=== PATIENT | female | born 1940 | race Caucasian/White ===

== ENCOUNTER → 2018-12-28 10:40 | Outpatient (CLI) | payer MEDICARE, OTHER | END | disposition home or self-care (01) | LOC: D.MRI 12-13 11:30 | PROVIDERS: ATTEND Orthopaedic Surgery | DX: M54.5 Low back pain (principal) ==

== ENCOUNTER → 2019-02-07 12:04 | Outpatient (CLI) | payer MEDICARE, OTHER ==
--- NOTE | ~2019-02-07 | HEMODYNAMI ---
PATIENT:PIERRE KRAFT MEDICAL RECORD: [id number] : 42 LOCATION:[facility] ADMISSION DATE: 02/07/19 Generatedon:02/07/201913:42 Patient name: PIERRE KRAFT Patient #: [id number] SSN: : 1940 Date of study: 02/07/2019 Page: Of Hemodynamic Procedure Report Patient Data Patient Demographics Procedure consent was obtained First Name: PIERRE Gender: Female Last Name: SWAPNIL : 1940 [facility] Initial: M Age: 78 year(s) Patient #: [id number] Race: Unknown Additional ID: [id number] Contact details Address: [address] [place] [address] State: [place] City: [place] Zip code: [address] Past Medical History Allergies Allergen Reaction Date Comments Reported Sulfa drugs 02/07/2019 Admission Admission Data Admission Date: 02/07/2019 Admission Time: 12:04 Procedure Procedure Types Cath Procedure Peripheral Cath Diagnostic Procedure Miscellaneous Epidural Steroid Injection Procedure Description Procedure Date Procedure Date: 02/07/2019 Procedure Start Time: 13:24 Procedure Staff Name Function Morris Jones MD Performing Physician Myke Rossi RT Monitor Procedure Data Cath Procedure Fluoroscopy Diagnostic fluoroscopy Total fluoroscopy Time: 1 time: 1 min min Diagnostic fluoroscopy Total fluoroscopy dose: 19 dose: 19 mGy mGy Hemodynamics Rest Pre Cath Intra NCS Post Cath Procedure Log Time Note 13:13:52 Myke Rossi RT (R) (CV) sent for patient. Start room use. 13:14:01 Time tracking: Regular hours (M-F 7:00 - 5:00) 13:14:17 Patient received from Outpatients to IR Alert and oriented. Tansferred to table in Prone position. 13:14:18 Correct patient and procedure confirmed by team. 13:14:20 Signed procedure consent form obtained from patient. 13:14:21 ECG and BP/O2 sat monitors applied to patient. 13:14:23 Full Disclosure recording started 13:14:23 - 13:14:25 Pre-procedure instructions explained to patient. 13:14:26 Pre-op teaching completed and patient verbalized understanding. 13:14:31 Is patient on blood thinner?No 13:15:01 Patient allergic to Sulfa drugs 13:23:49 Lumbar area was prepped with betadine and draped in sterile fashion 13:23:52 --------ALL STOP TIME OUT------ 13:23:53 Final Timeout: patient, procedure, and site verified with staff and physician. All members of the team are in agreement. 13:23:57 Lumbar site verified by team. 13:24:16 Sedation plan: Local Anesthetic Medication:Lidocaine 13:24:26 Procedure started. 13:24:32 Local anesthetic to Lumbar area with Lidocaine 1% by Morris Jones MD.INITIAL ACCESS ONLY 13:24:34 KIT EPIDURAL CATHETERIZATION opened to sterile field. 13:41:27 Procedure ended.(Physican Out) 13:41:48 Fluoroscopy time 01.00 minutes. 13:41:55 Fluoroscopy dose: 19 mGy 13:41:55 Flurop Dose total: 19 13:42:12 bandaide applied site stable pt sent home Device Usage Item Name Manufacture Quantity Catalog Hospital Part Current [facility] l Lot# / Number Charge Number Stock Stock Serial# Code KIT EPIDURAL Teleflex 1 [id number] CATHETERIZATION Signature Audit [place] Stage Time Signature Unsigned Intra-Procedure 02/07/2019 Myke 1:42:42 PM Enid RT (R) (CV) Signatures Monitor : Myke Signature : Enid RT Date : Time : [facility] [address] [place] [address]
== END | disposition home or self-care (01) ==
LOC: D.RAD 01-17 14:00 → D.SP 01-17 14:00
PROVIDERS: ATTEND Orthopaedic Surgery
DX: G89.29 Other chronic pain (principal); M54.9 Dorsalgia, unspecified; Z01.812 Encounter for preprocedural laboratory examination

== ENCOUNTER 2020-02-17 19:48 | Inpatient (IN) | payer MEDICARE, OTHER ==
[~2020-02-17] VITALS: Ht 165.1 cm; Wt 65.0 kg
--- NOTE | ~2020-02-17 | HEMODYNAMI ---
PATIENT:PIERRE KRAFT MEDICAL RECORD: [id number] : 42 [facility] ADMISSION DATE: 02/17/20 Generatedon:02/18/20209:40 Patient name: PIERRE KRAFT Patient #: [id number] SSN: [id number] : 1940 Date of study: 02/18/2020 Page: Of Hemodynamic Procedure Report Patient Data Patient Demographics Procedure consent was obtained First Name: PIERRE Gender: Female Last Name: SWAPNIL : 1940 [facility] Initial: M Age: 79 year(s) Patient #: [id number] Race: SSN: [id number] Additional ID: [id number] Contact details Address: [address] [place] [address] State: [place] City: [place] Zip code: [address] Past Medical History Allergies Allergen Reaction Date Comments Reported Sulfa drugs 02/07/2019 Other allergy 02/18/2020 SULFA Admission Admission Data Admission Date: 02/17/2020 Admission Time: 21:00 Arrival Date: 02/18/2020 Arrival Time: 0:00 Admit Source: Other Insurance Payor: Medicare Room #: D.2115 [facility] #: [id number] Lab Results Lab Result Date: 02/18/2020 Lab Result Time: 0:00 Biochemistry Name Units Result Min Max BUN mg/dl 12 --(-*--)-- 7 18 CK-MB ng/ml 9.1 --(----)-* 0 3.6 Creatinine mg/dl 0.7 --(*---)-- 0.6 1.3 eGFR ml/min 85.05922 -*(----)-- 90 120 NONAFRICAN Troponin l ng/ml 2.031 --(----)-* 0 0.06 CBC Name Units Result Min Max Hematocrit % 28 *-(----)-- 42 54 Hemoglobin g/dl 9.2 *-(----)-- 13.5 17.5 Procedure Procedure Types Cath Procedure Diagnostic Procedure [facility] w/Coronaries Sedation Charges Moderate Sedation up to 15 minutes Procedure Description Procedure Date Procedure Date: 02/18/2020 Procedure Start Time: 9:09 Procedure End Time: 9:35 Procedure Staff Name Function Loco Dee MD Performing Physician Leo Vela RN Nurse Linn Rodriguez RT Scrub Dianna Araya RT Monitor Procedure Data Cath Procedure Fluoroscopy Diagnostic fluoroscopy Total fluoroscopy Time: 4.6 time: 4.6 min min Diagnostic fluoroscopy Total fluoroscopy dose: 384 dose: 384 mGy mGy Contrast Material Contrast Material Type Amount (ml) Isovue 300 60 Entry Location Entry Primary Successful Side Size Upsize Upsize Entry Closure Mcmahon ccessful Closure Location (Fr) 1 (Fr) 2 (Fr) Remarks Device Remarks Radial Right 6 Fr Mechanical artery Short Compression Estimated blood loss: 5 ml Diagnostic catheters Device Type Used For End Catheter Placement DIAGNOSTIC [place] 110cm 5 Multi-vessel Fr catheter ([id number]) Angiography DIAGNOSTIC MPA-2 5Fr Right Coronary catheter ([id number]) Angiography Procedure Complications No complications Procedure Medications Medication Administration Route Dosage Oxygen etCO2 Nasal cannula 2 l/min Lidocaine 2% added to field 20 Heparin Flush Bag added to field 2 bags (1000units/500ml NS) 0.9% NaCl I.V. bolus 500 ml Versed I.V. 1 mg Versed I.V. 1 mg Radial Cocktail I.A. 1 syringe (Verapamil 2mg/Nitro 400mcg/Heparin 1500units) Hemodynamics Rest HGB: 9.2 (g/dl) Heart Rate: 49 (bpm) Pressure Samples Time Site Value (mmHg) Purpose Heart Use Rate(bpm) 9:20 LV 144/-3,0 Snapshot 77 9:20 LV 161/69,70 EDP 53 Snapshots Pre Cath Intra NCS Post Cath Vital Signs Time Heart Resp SPO2 etCO2 NIBP (mmHg) Rhythm Pain Sedation Rate (ipm) (%) (mmHg) Status Level (bpm) 8:58:45 53 25 100 33 174/80(145) SB 0 (11) 10(A) , No pain 9:03:07 48 17 99 32.3 168/78(138) SB 0 (11) 10(A) , No pain 9:07:33 47 25 100 23.3 169/61(144) SB 0 (11) 10(A) , No pain 9:11:57 50 20 98 24 154/67(116) SB 0 (11) 10(A) , No pain 9:16:13 62 13 95 27.8 137/75(117) SB 0 (11) 10(A) , No pain 9:20:17 50 15 98 21 150/99(114) SB 0 (11) 10(A) , No pain 9:26:40 52 14 33.8 Time NSR 0 (11) 10(A) Exceeded , No pain 9:30:17 53 21 98 29.3 168/68(95) NSR 0 (11) 10(A) , No pain 9:34:39 55 21 98 20.3 169/70(95) NSR 0 (11) 10(A) , No pain Medications Time Medication Route Dose Verified Delivered Reason Notes Effectiveness by by 8:56:56 Oxygen etCO2 2 l/min Norred Buffie used for Nasal Luiz Vela RN procedure cannula 8:57:08 Lidocaine 2% added 20ml Norred Norred for local to vial Luiz Dee MD anesthetic field 8:57:14 Heparin Flush added 2 bags Norred Norred used for Bag to Luiz Dee MD procedure (1000units/500ml field NS) 8:57:26 0.9% NaCl I.V. 500 ml Norred Buffie Per bolus Luiz Vela RN physician 9:05:15 Versed I.V. 1 mg Norred Buffie for sedation Luiz Vela RN 9:15:49 Radial Cocktail I.A. 1 Norred Norred for (Verapamil syringe Luiz Dee MD vasodilation 2mg/Nitro 400mcg/Heparin 1500units) 9:19:16 Versed I.V. 1 mg Norred Buffie for sedation Luiz Vela RN Procedure Log Time Note 8:19:17 Informed consent obtained and on chart 8:19:44 Diagnostic Cath Status : Urgent 8:20:08 Arrival Date: 02/18/2020 12:00:00 AM 8:20:09 Admit Source: Other 8:20:13 Insurance Payor : Medicare 8:25:56 ACC Patient presents with Stable Angina CCS Anginal Class 3--Marked limitation of physical activity, angina occurs with ordinary activity.. 8:26:40 Procedure Status Urgent Heart Cath (IP). 8:26:45 Time tracking: Call back (After hours or weekends) 8:26:50 Plan of Care:Hemodynamics will remain stable., Cardiac rhythm will remain stable., Comfort level will be maintained., Respiratory function will remain adequate., Patient/ family verbilizes understanding of procedure., Procedure tolerated without complication., Recovers from procedure without complications.. 8::33 Lab Result : BUN 12 mg/dl : Lab Result : Creatinine 0.7 mg/dl :: Lab Result : Troponin l 2.031 ng/ml :: Lab Result : CK-MB 9.1 ng/ml :: Lab Result : eGFR NONAFRICAN 85.07022 ml/min :: Lab Result : Hemoglobin 9.2 g/dl :: Lab Result : Hematocrit 28 % 8:29:52 Lab results completed and on chart. 8:29:55 Stress Test: no; N/A ? 8:29:59 Risk of Mortality: 2.2 8:30:02 Risk of blood transfusion: 18.5 8:30:07 Risk of YAAKOV: 4.1 8:30:09 Alarms reviewed by R. N. 8:30:10 Sharps counted by scrub and verified by R.N. 8:32:52 Patient allergic to Other allergySULFA 8:40:32 Leo Vela RN sent for patient. Start room use. 8:44:00 Patient received from Med II to CCL 1 Alert and oriented. Tansferred to table in Supine position. 8:44:01 Warm blankets applied, and fco hugger turned on for patient comfort. 8:44:01 Correct patient and procedure confirmed by team. 8:44:02 ECG and BP/O2 sat monitors applied to patient. 8:44:12 Pre-procedure instructions explained to patient. 8:44:12 Pre-op teaching completed and patient verbalized understanding. 8:44:14 Family unavailable. 8:44:16 Patient NPO since Midnight. 8:56:44 Vital chart was started 8:56:56 Oxygen 2 l/min etCO2 Nasal cannula was administered by Leo Vela RN; used for procedure; Verbal order read back and verified. 8:57:08 Lidocaine 2% 20ml vial added to field was administered by Loco Dee MD; for local anesthetic; Verbal order read back and verified. 8:57:14 Heparin Flush Bag (1000units/500ml NS) 2 bags added to field was administered by Loco Dee MD; used for procedure; Verbal order read back and verified. 8:57:26 0.9% NaCl 500 ml I.V. bolus was administered by Leo Vela RN; Per physician; Verbal order read back and verified. 9:02:00 Baseline sample Acquired. 9:02:06 Rhythm: sinus bradycardia 9:02:07 Full Disclosure recording started 9:02:11 H&P Date Dictated: 02/18/2020 New H&P dictated by physician.. 9:02:15 Is the patient allergic to Iodine/contrast media? No. 9:02:16 Was the patient premedicated? Yes 9:02:19 Is patient on blood thinner?Yes 9:02:22 ACC The patient was administered the following blood thiners within the last 24 hours: ACCPlavix 9:02:24 Patient diabetic? No. 9:02:27 Previous problem with sedation/anesthesia? No ? 9:02:30 Snore? No 9:02:31 Sleep apnea? No 9:02:32 Deviated septum? No 9:02:34 Opens mouth fully? Yes 9:02:36 Sticks out tongue? Yes 9:02:53 Airway obstruction? No ? 9:03:15 Dentures? Yes IN TIGHT 9:03:20 Pre procedure: right dorsailis pedis pulse 1+ Palpable, but thready & weak; easily obliterated 9:03:24 Pre procedure: left dorsailis pedis pulse 1+ Palpable, but thready & weak; easily obliterated 9:03:28 Patient pain scale 0/10 ?. 9:03:34 IV patent on arrival in left antecubital with 0.9% NaCl at [facility]. 9:03:38 Physician arrived 9:03:38 --------ALL STOP TIME OUT------ 9:03:39 Final Timeout: patient, procedure, and site verified with staff and physician. All members of the team are in agreement. 9:03:41 Right Radial & Right Groin site verified by team. 9:03:45 Fire Safety Assessment: A--An alcohol-based skin anteseptic being used preoperatively., C--Open oxygen or nitrous oxide is being used., D--An ESU, laser, or fiber-optic light is being used. 9:03:48 Physical assessment completed. ASA score P 2 - A patient with mild systemic disease as per Loco Dee MD. 9:04:05 2) 60-89 Mildly reduced kidney function, and other findings (as for stage 1) point to kidney disease. 9:04:22 Maximum allowable contrast dose (3.7 X eGFR X 0.75)238 ml. 9:04:26 Sedation plan: IV Moderate Sedation Medication:Versed, Fentanyl 9:05:15 Versed 1 mg I.V. was administered by Leo Vela RN; for sedation; Verbal order read back and verified. 9:09:04 Procedure started. 9:09:08 Local anesthetic to right radial artery with Lidocaine 2% by Loco Dee MD.INITIAL ACCESS ONLY 9:10:41 MICROPUNCTURE 4FR Cook (S71202) opened to sterile field. 9:10:57 Access obtained with 4Fr micropunture. 9:11:06 A 6 Fr Short sheath was inserted into the Right Radial artery 9:11:33 Use device set Radial Dx or PCI 9:11:34 ACIST Syringe (97518) opened to sterile field. 9:11:34 Medline Cath Pack ([id number]) opened to sterile field. 9:11:35 Bag Decanter (2002) opened to sterile field. 9:11:35 ACIST Hand Control (01717) opened to sterile field. 9:11:35 ACIST Manifold (67039) opened to sterile field. 9:11:36 Tegaderm 4 x 4 (1626W) opened to sterile field. 9:11:37 MBrace Wrist Support ([id number]) opened to sterile field. 9:11:39 EMERALD Guide Wire (815-386) opened to sterile field. 9:11:39 SHEATH 6FR RAIN (6244565) opened to sterile field. 9:14:03 FIELDER XT 190cm guidewire ([id number]) opened to sterile field. 9:14:57 FIELDER wire advanced. 9:15:49 Radial Cocktail (Verapamil 2mg/Nitro 400mcg/Heparin 1500units) 1 syringe I.A. was administered by Loco Dee MD; for vasodilation; Verbal order read back and verified. 9:18:55 Wire removed. 9:19:03 A DIAGNOSTIC [place] 110cm 5 Fr catheter (823375) was advanced over the wire and used for Multi-vessel Angiography. 9:19:16 Versed 1 mg I.V. was administered by Leo Vela RN; for sedation; Verbal order read back and verified. 9:20:10 LV hemodynamics recorded. 9:20:11 LV gram done using MCFADDEN 9:20:13 Injector settings: Ml/sec: 12, Volume: 8, 9:21:06 EF : 55 % 9:22:23 LCA angiography performed. 9::27 Injector settings: Ml/sec: 3, Volume: 6, 9:24:37 Catheter removed. 9:26:22 A DIAGNOSTIC MPA-2 5Fr catheter ([id number]) was advanced over the wire and used for Right Coronary Angiography. 9:26:42 RCA angiography performed. 9:26:44 Injector settings: Ml/sec: 3, Volume: 6, 9:27:24 Catheter removed. 9:28:57 Sheath removed intact; hemostasis achieved with Mechanical Compression to the Right Radial artery. 9:28:58 Procedure ended.(Physican Out) 9:29:18 ZEPHYR REGULAR TR BAND (609885) opened to sterile field. 9:29:58 Fluoroscopy time 04.60 minutes. 9:30:03 Fluoroscopy dose: 384 mGy 9:30:03 Flurop Dose total: 384 9:30:09 Dose Area Product 21790 mGy/cm. 9:30:17 Contrast amount:Isovue 300 60ml. 9:30:20 Maximum allowable dose exceeded? No. 9:30:22 Sharps counted by scrub and verified by R.N. 9:30:24 [place] band inflated with 10cc of air. 9:30:29 Post right radial artery:stable 9:30:31 Post Procedure Pulses reassessed and unchanged 9:30:33 Post procedure rhythm: unchanged. 9:31:10 Estimated blood loss: 5 ml 9:31:11 Post procedure instruction explained to patient.Patient verbalizes understanding. 9:31:12 Patient needs reinforcement of post procedure teaching. 9:35:02 Procedure type changed to Cath procedure, Diagnostic procedure, LHC, LHC w/Coronaries, Sedation Charges, Moderate Sedation up to 15 minutes 9:35:03 Procedure and supply charges have been captured, reviewed, submitted and are correct. 9:35:07 Procedure Complication : No complications 9:35:09 Vital chart was stopped 9:35:10 [facility] Findings: MVD- CABG consult 9:35:12 Operative report dictated upon procedure completion. 9:35:13 See physician's report for complete and final results. 9:35:16 Report given to [facility]. 9:35:18 Patient transfered to [facility] with Stretcher. 9:35:21 Procedure ended. 9:35:21 Full Disclosure recording stopped 9:35:26 End room use (Document Last) 9:39:12 End room use (Document Last) 9:39:37 End room use (Document Last) Device Usage Item Name Manufacture Quantity Catalog Hospital Part Current Mini mal Lot# / Number Charge Number Stock Stock Serial# Code MICROPUNCTURE Cook Medical 1 [id number] [id number] [id number] 5 4FR Cook ([id number]) ACIST Syringe Acist 1 80605 853995 493767 830947 20 (58667) Medical Systems Inc Medline Cath Medline 1 [id number] 084634 35551 380254 5 Pack ([id number]) Bag Decanter Microtek 1 2002S 210066 59738 714171 5 (2002S) Medical Inc. ACIST Hand Acist 1 71657 166327 820976 755126 5 Control Medical (72485) Systems Inc ACIST Acist 1 79310 710106 086726 263837 5 Manifold Medical (68250) Systems Inc Tegaderm 4 x 3M 1 1626W 067646 388625 818388 5 4 (1626W) MBrace Wrist Advanced 1 140-0250-00 065777 78203 392749 5 Support Vascular ([id number]) Dynamics EMERALD Guide Cardinal 1 502-455 590793 432248 728054 5 Wire Health (502-455) SHEATH 6FR Cardinal 1 0590825 632469 2032909 081179 5 [facility] (4155606) FIELDER XT Asahi Intecc 1 [id number] 842298 55634 149245 5 190cm guidewire ([id number]) DIAGNOSTIC Terumo 1 40-9189 759655 916267 973789 5 [place] 110cm 5 Fr catheter (433006) DIAGNOSTIC Cardinal 1 [id number] 267458 157920 041800 5 MPA-2 5Fr Health catheter (083497Z) ZEPHYR Cardinal 1 023591 177569 4412123 989969 5 REGULAR TR Health BAND (364836) Signature Audit [place] Stage Time Signature Unsigned Intra-Procedure 02/18/2020 Dianna Araya 9:39:12 AM RT(R) Intra-Procedure 02/18/2020 Leo Vela RN 9:39:37 AM Intra-Procedure 02/18/2020 Loco Dee MD 9:40:21 AM [facility] [address] [place] [place] [address]
--- NOTE | ~2020-02-17 | EC ---
PATIENT:PIERRE KRAFT DATE OF SERVICE: 02/17/20 SEX: F MEDICAL RECORD: [id number] DATE OF : 42 LOCATION:D.M2 D.211 AGE OF PATIENT: 79 ADMISSION DATE: 02/17/20 REFERRING PHYSICIAN: INTERPRETING PHYSICIAN: SONAM RAJPUT MD ECHOCARDIOGRAM REPORT ECHO CHARGES 4 ECHO COMPLETE Date: 02/18/20 CLINICAL DIAGNOSIS: NSTE VT ECHOCARDIOGRAPHIC MEASUREMENTS (adult normal given) AC root (d.<3.7cm) 3.6 cm LV Septum d (<1.2 cm> 1.4 cm Valve Excursion 1.7 cm LV Septum (systole) 1.6 cm Left Atria (s.<4.0cm> 3.9 cm LVPW d(<1.2cm) 1.3 cm RV (d.<2.3cm) 2.9 cm LVPW (sytole) 1.7 cm LV diastole(<5.6CM) 4.9 cm MV E-F(>70mm/sec) cm LV systole 3.4 cm LVOT Diameter 1.9 cm MV exc.(>10mm) 1.2 cm Est.ejection fraction (50-75%) % DOPPLER: LVIT cm/sec A 79.0 cm/sec E 74.0 cm/sec LA cm/sec RVSP 22 mmHg LVOT 127 cm/sec AOP1/2T m/s Asc. Ao 132 cm/sec RVOT 99 cm/sec RA cm/sec PA 138 cm/sec AV Gradient Peak 6.95 mmHg AV Mean 2.97 mmHg AV Area 2.4 cm MV Gradient Peak 2.93 mmHg MV Mean 0.93 mmHg MV Area cm COMMENTS: [employer] Cord: Brit RAZA Roll Clamp Operator: Karmen Rajput TAPE# PACS Pericardial Effusion N DATE OF SERVICE: PROCEDURE: Transthoracic echocardiogram. FINDINGS: 1. Left ventricle shows moderate left ventricular hypertrophy with ejection fraction of 55%. 2. Left atrium is normal size; shape, and function. 3. The aortic valve is normal. 4. The mitral valve appears to be structurally normal, but there is evidence of ECHOCARDIOGRAM REPORT [id number] PIERRE KRAFT moderate to moderately severe mitral regurgitation. 5. Tricuspid valve has mild tricuspid regurgitation with an estimated pressure of 22 mmHg. 6. Right ventricle has mild enlargement. 7. Right atrium is normal. IMPRESSION: The patient has left ventricular hypertrophy and evidence of moderate to moderately severe mitral regurgitation. TRANSINT:[id number] Voice Confirmation ID: [id number] DOCUMENT ID: [id number] SONAM RAJPUT MD CC: [id number] DICTATION DATE: 02/18/20 1143 HOISTER: 02/18/20 1449 ADM IN [facility] [address] [place] [address]
[2020-02-17 20:05] LABS: BASOPHILS 0.2 % (0-2); EOSINOPHILS 8.4 % (0-7); HEMATOCRIT 29.6 % (36.0-48.0); HEMOGLOBIN 9.7 g/dL (12-16); IMMATURE GRANULOCYTES 0.2 % (0-5); MCH 35.1 pg (26.0-34.0); MCHC 32.8 g/dL (31.0-37.0); MCV 107.2 fL (80.0-100.0); MEAN PLATELET VOLUME 9.2 fL (7.4-10.4); MONOCYTES 10.5 % (2-11); NEUTROPHILS 42.7 % (40-80); PLATELET COUNT 265 10x3/uL (130-400); RBC 2.76 10x6/uL (4.00-5.40); RDW 14.1 % (11.5-14.5); WBC 4.7 10x3/uL (4.8-10.8)
[2020-02-17 20:12] LABS: CALC OSMOLALITY 275 mosm/kg (275-300); CALCIUM 9.3 mg/dL (8.5-10.1); CARBON DIOXIDE 28.1 mmol/L (21.0-32.0); CHLORIDE - SERUM 103 mmol/L (98-107); CREATININE - SERUM 0.8 mg/dL (0.6-1.3); GLUCOSE 121 mg/dL (74-106); POTASSIUM - SERUM 3.4 mmol/L (3.5-5.1); SODIUM 137 mmol/L (136-145); UREA NITROGEN 15 mg/dL (7-18); eGFR NON AFRICAN AMERICAN 73 mL/min (90-120)
[2020-02-17 20:13] LABS: APTT 25.4 SECONDS (22.8-39.4); PROTIME 13.2 SECONDS (11.6-15.0)
[2020-02-17 20:22] VITALS: BP 159/68
[2020-02-17 20:36] LABS: ALBUMIN 3.5 g/dL (3.4-5.0); ALKALINE PHOSPHATASE 95 U/L (30-120); ALT (SGPT) 18 U/L (10-68); CREATINE KINASE 54 UL (21-215); MAGNESIUM - SERUM 1.7 mg/dL (1.8-2.4); PROTEIN - SERUM 6.6 g/dL (6.4-8.2)
[2020-02-17 20:38] LABS: TROPONIN-I 0.908 ng/mL (0.000-0.060)
[2020-02-17] MEDS ORDERED: OMEPRAZOLE20 M1 PO (22:55)
[2020-02-18 01:35] VITALS: BP 165/57; BMI 24.9
[2020-02-18 02:56] LABS: HEMOGLOBIN 9.2 g/dL (12-16); MCH 34.6 pg (26.0-34.0); MCHC 32.9 g/dL (31.0-37.0); MCV 105.3 fL (80.0-100.0); MEAN PLATELET VOLUME 9.5 fL (7.4-10.4); PLATELET COUNT 251 10x3/uL (130-400); RBC 2.66 10x6/uL (4.00-5.40); WBC 5.2 10x3/uL (4.8-10.8)
[2020-02-18 03:11] LABS: LYMPHOCYTES 35 % (15-50); MONOCYTES 11 % (2-11); NEUTROPHILS 54 % (40-80); PLATELET ESTIMATE NORMAL
[2020-02-18 03:35] LABS: CALC OSMOLALITY 277 mosm/kg (275-300); CALCIUM 8.9 mg/dL (8.5-10.1); CARBON DIOXIDE 30.8 mmol/L (21.0-32.0); CHLORIDE - SERUM 106 mmol/L (98-107); CKMB 9.1 U/L (0.0-3.6); CREATINE KINASE 93 UL (21-215); CREATININE - SERUM 0.7 mg/dL (0.6-1.3); GLUCOSE 102 mg/dL (74-106); SODIUM 139 mmol/L (136-145); UREA NITROGEN 12 mg/dL (7-18); eGFR NON AFRICAN AMERICAN 86 mL/min (90-120)
[2020-02-18 03:38] LABS: TROPONIN-I 2.031 ng/mL (0.000-0.060)
[2020-02-18 04:46] VITALS: BP 137/55
[2020-02-18 08:47] LABS: CREATINE KINASE 76 UL (21-215)
[2020-02-18 08:48] VITALS: BMI 24.9
[2020-02-18 08:48] LABS: TROPONIN-I 1.691 ng/mL (0.000-0.060)
[2020-02-18 09:16] LABS: CALC OSMOLALITY 277 mosm/kg (275-300); CALCIUM 8.9 mg/dL (8.5-10.1); CHLORIDE - SERUM 106 mmol/L (98-107); CREATININE - SERUM 0.6 mg/dL (0.6-1.3); GLUCOSE 96 mg/dL (74-106); POTASSIUM - SERUM 3.8 mmol/L (3.5-5.1); SODIUM 140 mmol/L (136-145); UREA NITROGEN 10 mg/dL (7-18); eGFR NON AFRICAN AMERICAN > 90 mL/min (90-120)
[2020-02-18 09:37] LABS: BASOPHILS 0.2 % (0-2); EOSINOPHILS 6.3 % (0-7); HEMATOCRIT 26.4 % (36.0-48.0); HEMOGLOBIN 8.7 g/dL (12-16); LYMPHOCYTES 31.3 % (15-50); MCH 34.8 pg (26.0-34.0); MCV 105.6 fL (80.0-100.0); MEAN PLATELET VOLUME 9.3 fL (7.4-10.4); MONOCYTES 9.6 % (2-11); NEUTROPHILS 52.6 % (40-80); PLATELET COUNT 234 10x3/uL (130-400); RDW 13.9 % (11.5-14.5); WBC 4.5 10x3/uL (4.8-10.8)
[2020-02-18 09:44] VITALS: Ht 165.1 cm; Wt 65.0 kg
--- NOTE | 2020-02-18 10:15 | NUR ---
RECEIVED PT FROM CLINICAL COORDINATOR. RIGHT RADIAL SITE IS C/D/I WITH NO S/S OF HEMATOMA PRESENT. ZEPHER BAND IN PLACE. NO S/S OF DISTRESS NOTED. WILL CTM.
[2020-02-18 10:58] VITALS: BP 164/73
[2020-02-18 13:47] LABS: % SATURATION 36 % (15-55); IRON 76 ug/dl (35-150); TOTAL IRON BIND CAPACITY 207 ug/dl (260-445); UNSAT IRON BIND CAPACITY 131 ug/dl (150-375)
[2020-02-18 15:27] VITALS: BP 137/57
--- NOTE | 2020-02-18 20:00 | NUR ---
INITIAL ROUNDS COMPLETED. PT RESTING IN BED. FAMILY X 1 AT BEDSIDE. SR PER TELEMETRY. NONLABORED RESPIRATIONS ON ROOM AIR. SALINE LOCK TO LEFT A/C.
[2020-02-18 20:47] VITALS: BP 153/64
--- NOTE | 2020-02-18 22:00 | NUR ---
LOVENOX ADMINISTERED. PT C/O REFLUX/GERD. REVIEWED MEDS AND ADMINISTERED HER ORDERED PEPCID IV. MONITOR AND CPOC. [facility] DONE THIS AM. DRESSING IN PLACE. C/D/I. SMALL AMOUNT BRUISING NOTED. CPOC.
[2020-02-19 04:30] VITALS: BP 120/54
[2020-02-19 09:17] VITALS: BP 123/53
--- NOTE | 2020-02-19 10:30 | NUR ---
PT C/O LT AC IV HURTING AND WANTED TO GET IT CHANGED TO DIFFERENT SITE. NEW 20G IV STARTED TO LT FA X1 STICK. PT DENIES ANY NEEDS AT THIS TIME. CALL LIGHT IN REACH, NAD NOTED, WILL CONTINUE TO MONITOR.
--- NOTE | 2020-02-19 12:06 | HP ---
PATIENT: PIERRE KRAFT MEDICAL RECORD: [id number] ACCOUNT: [id number] LOCATION:[address] : 42 ADMISSION DATE: 02/18/20 PCP: DELON AVELAR MD HISTORY AND PHYSICAL EXAMINATION DATE OF ADMISSION: 02/17/2020 CHIEF COMPLAINT: Chest pain. HISTORY OF PRESENT ILLNESS: This is a 79-year-old female started having chest pain during the day on 02/17/2020, it went to the left side of her neck and shoulder and into her left arm. She did have some shortness of breath, some nausea. She has no history of heart disease. She came to the ER where her workup in the ER showed hemoglobin of 8.7, hematocrit 26.4. Basic metabolic panel was okay. Troponin was elevated at 0.908. Chest x-ray showed nothing acute. EKG showed nonspecific changes. She was admitted with non-ST elevated WI and elevated troponin with chest pain. PAST MEDICAL AND SURGICAL HISTORY: She has a history of reflux and arthritis. She had heart catheterization back in 2012 and it was essentially normal. She has a history of cognitive decline. We started the process of trying to get her in to see somebody for official testing and then the COVID-19 pandemic started and she was unable to get in and be seen. Past surgical history; bilateral tubal ligation, left knee arthroscopy. ALLERGIES: CELEBREX, PENICILLIN, SULFA. MEDICATIONS: Omeprazole 20 mg once a day. SOCIAL HISTORY: , retired. HABITS: Never smoked. No alcohol or drugs. FAMILY HISTORY: Both parents are . Mother had dementia. Sister with dementia. REVIEW OF SYSTEMS: GENERAL: No major weight changes. HEENT: No particular sinus or allergy problems. RESPIRATORY: No history of emphysema or asthma. CARDIAC: No known coronary artery disease. Had an angiogram in 2013 that was normal. GASTROINTESTINAL: Has some reflux. GENITOURINARY: No significant problems there. MUSCULOSKELETAL: Some arthritic aches and pains. NEUROLOGIC: She has a cognitive decline. No seizures. No migraines. PSYCHIATRIC: No depression or melancholia. PHYSICAL EXAMINATION: VITAL SIGNS: Temperature is 98.2, pulse 49, respirations 19, blood pressure 137/55, O2 sat 96%. GENERAL: She is awake and alert. She does not appear to be in acute distress. SKIN: Warm and dry. HEENT: Grossly within normal limits. NECK: Supple. No JVD or bruit. HISTORY AND PHYSICAL [id number] PIERRE KRAFT HEART: Bradycardia without murmur. LUNGS: Clear. ABDOMEN: Soft. EXTREMITIES: No edema. NEUROLOGIC: Cranial nerves are intact. LABORATORY AND DIAGNOSTIC DATA: EKG showed normal sinus rhythm, nonspecific ST changes. Chest x-ray, nothing acute. CBC with a white count of 4500, hemoglobin 8.7, hematocrit 26.4, platelets number 234,000. Sodium 140, potassium 3.8, chloride 106, CO2 28, BUN 10, creatinine 0.6, glucose 96, calcium 8.9. MCV was 105. Troponin initially was 0.908 going up to 2.031 and the third was a little down at 1.69, magnesium 1.7. ASSESSMENT: 1. Chest pain with non-ST elevation myocardial infarction. 2. Sinus bradycardia. 3. Macrocytic anemia. PLAN: Cardiology has been consulted and has seen the patient. 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 Consult CV surgery. We will do anemia workup for macrocytic anemia. Other tests or procedures as warranted. TRANSINT:[id number] Voice Confirmation ID: [id number] DOCUMENT ID: [id number] DELON AVELAR MD at 1206 CC: [id number] DICTATION DATE: 02/18/20 1309 TRIMMER TAILER: 02/18/20 1419 ADM IN [facility] [id number] [place] [address]
[2020-02-19 12:08] VITALS: BP 123/49
--- NOTE | 2020-02-19 17:30 | NUR ---
PT RESTING COMFORTABLY IN BED, DENIES ANY NEEDS AT THIS TIME. FAMILY AT BEDSIDE, CALL LIGHT IN REACH,NAD NOTED, WILL CONTINUE TO MONITOR.
--- NOTE | 2020-02-19 20:00 | NUR ---
INITIAL ROUNDS AND ASSESSMENT COMPLETED. PT RESTING IN BED. ALERT/ORIENTED. SR PER TELEMETRY. IVF SALINE LOCKED AT PT REQUEST SO SHE CAN SLEEP AND GET UP TO BATHROOM WITHOUT ISSUES. 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 SHE IS ALSO DEPRESSED WITH REMINISCING ABOUT HER CHILDREN THAT HAVE AND HER HAS 5 YEARS AGO. SPENT TIME TALKING TO PATIENT, ENCOURAGING HER TO TALK ABOUT HER FEELINGS AND PROVIDED EMOTIONAL SUPPORT.
[2020-02-19 20:30] VITALS: BP 124/59
[2020-02-20 04:36] VITALS: BP 130/60
[2020-02-20 08:16] VITALS: BP 120/66
--- NOTE | 2020-02-20 09:55 | NUR ---
AM MEDS GIVEN AT THIS TIME. PT A/O X4, RESP EVEN AND NONLABORED ON RA. LT FA IV SL. MONITOR SHOWING SR WITH ARATE OF 62. PT DENIES ANY NEEDS AT THIS TIME. CALL LIGHT IN REACH, NAD NOTED, WILL CONTINUE TO MONITOR.
[2020-02-20 12:48] VITALS: BP 116/40
[2020-02-20 17:01] VITALS: BP 114/50
--- NOTE | 2020-02-20 20:00 | NUR ---
INITIAL ROUNDS AND ASSESSMENT COMPLETED. PT RESTING IN BED WITH NO DISTRESS. ALERT/ORIENTED. STATES SHE DID GET TO TALK TO THE AIR AND HYDRONIC BALANCING TECHNICIAN ABOUT HER MVD/SURGERY NEEDS. PROVIDED WITH DAILY PAPER FOR STIMULATION. SR PER TELEMETRY. SALINE LOCK TO LFA. AMBULATORY TO BATHROOM. CPOC.
[2020-02-20 20:21] VITALS: BP 114/51
--- NOTE | 2020-02-20 23:44 | NUR ---
PT BORED AND UP AN DOWN IN HER ROOM. INQUISITIVE ABOUT HER PLAN OF CARE. WENT OVER HER NEW ORDERS FOR TODAY AND THE LAB RESULTS THAT WILL BE ADDRESSED BY THE MD. ADMINISTERED HER IV PEPCID AND IM LOVENOX TO ABDOMEN. CPOC.
[2020-02-21 00:33] VITALS: BP 141/60
[2020-02-21 05:48] VITALS: BP 115/51
[2020-02-21 07:15] LABS: BASOPHILS 0.2 % (0-2); HEMATOCRIT 29.2 % (36.0-48.0); HEMOGLOBIN 9.4 g/dL (12-16); IMMATURE GRANULOCYTES 0.2 % (0-5); LYMPHOCYTES 32.4 % (15-50); MCH 34.4 pg (26.0-34.0); MCHC 32.2 g/dL (31.0-37.0); MEAN PLATELET VOLUME 9.7 fL (7.4-10.4); MONOCYTES 9.6 % (2-11); NEUTROPHILS 47.6 % (40-80); PLATELET COUNT 273 10x3/uL (130-400); RBC 2.73 10x6/uL (4.00-5.40); RDW 14.3 % (11.5-14.5); WBC 4.4 10x3/uL (4.8-10.8)
[2020-02-21 07:35] LABS: CALC OSMOLALITY 277 mosm/kg (275-300); CALCIUM 9.3 mg/dL (8.5-10.1); CARBON DIOXIDE 30.1 mmol/L (21.0-32.0); CHLORIDE - SERUM 103 mmol/L (98-107); CREATININE - SERUM 0.6 mg/dL (0.6-1.3); GLUCOSE 98 mg/dL (74-106); POTASSIUM - SERUM 4.2 mmol/L (3.5-5.1); SODIUM 140 mmol/L (136-145); UREA NITROGEN 11 mg/dL (7-18); eGFR NON AFRICAN AMERICAN > 90 mL/min (90-120)
[2020-02-21 08:00] VITALS: BP 107/55
[2020-02-21 11:00] VITALS: BP 120/47
--- NOTE | 2020-02-21 12:09 | NUR ---
Nutrition Follow-up: Pt reports PO intake is "not too good" but then states she ate all of her breakfast this AM. Does not like the food provided. Denies N/V/C/D. Diet: Cardiac PO intake: 82% avg x 7 meals Wt: 147.7# (02/20); 149.9# (02/17) Last BM: 02/19 Labs reviewed Meds noted: Pepcid -Encourage PO intake and honor food preferences within diet restrictions. -Monitor wt. -RD following.
[2020-02-21 13:25] LABS: BASOPHILS 0.2 % (0-2); EOSINOPHILS 10.4 % (0-7); HEMATOCRIT 30.8 % (36.0-48.0); HEMOGLOBIN 9.9 g/dL (12-16); LYMPHOCYTES 34.9 % (15-50); MCH 34.7 pg (26.0-34.0); MCHC 32.1 g/dL (31.0-37.0); MCV 108.1 fL (80.0-100.0); MEAN PLATELET VOLUME 9.1 fL (7.4-10.4); MONOCYTES 9.7 % (2-11); NEUTROPHILS 44.8 % (40-80); PLATELET COUNT 260 10x3/uL (130-400); RBC 2.85 10x6/uL (4.00-5.40); RDW 14.2 % (11.5-14.5); WBC 4.1 10x3/uL (4.8-10.8)
[2020-02-21 13:33] LABS: APTT 34.1 SECONDS (22.8-39.4); INR 1.01 (0.85-1.17); PROTIME 13.2 SECONDS (11.6-15.0)
[2020-02-21 13:58] LABS: BILIRUBIN NEGATIVE (NEGATIVE); GLUCOSE NEGATIVE (NEGATIVE); KETONE NEGATIVE (NEGATIVE); NITRITE NEGATIVE (NEGATIVE); UROBILINOGEN NORMAL (NORMAL)
[2020-02-21 14:04] LABS: BACTERIA MANY /hpf (NEGATIVE); EPITHELIAL CELLS 0-5 /hpf (0-5); RED CELLS - URINE NONE SEEN /hpf (0-5)
[2020-02-21 14:05] LABS: ALBUMIN 3.5 g/dL (3.4-5.0); ANION GAP 9.1 mmol/L (8-16); BILIRUBIN - TOTAL 0.29 mg/dL (0.2-1.3); CALCIUM 9.3 mg/dL (8.5-10.1); PHOSPHOROUS 3.4 mg/dL (2.5-4.9); POTASSIUM - SERUM 4.1 mmol/L (3.5-5.1); PROTEIN - SERUM 6.6 g/dL (6.4-8.2); T4 THYROXIN - FREE 0.95 ng/dL (0.76-1.46); THYROID STIMULATING HORMONE 2.28 uIU/mL (0.36-3.74)
[2020-02-21 14:06] LABS: CREATININE - SERUM 0.8 mg/dL (0.6-1.3)
[2020-02-21 14:32] LABS: PLT FUNCT.(P2Y12) PLAVIX 276 PRU (194-418)
[2020-02-21 15:00] VITALS: BP 137/48
--- NOTE | 2020-02-21 19:22 | NUR ---
RECEIVED BEDSIDE REPORT. PATIENT IS ALERT AND ORIENTED, RESTING COMFORTABLY IN BED. RESPIRATIONS ARE EVEN AND UNLABORED. NO S/S OF DISTRESS. NO C/O PAIN. CALL LIGHT WITHIN REACH. WILL CPOC.
[2020-02-21 20:50] VITALS: BP 117/66
[2020-02-22 00:39] VITALS: BP 135/52
--- NOTE | 2020-02-22 01:00 | NUR ---
PATIENT RESTING COMFORTABLY IN BED, RESPIRATIONS ARE EVEN AND UNLABORED. NO S/S OF DISTRESS. NO C/O PAIN. CALL LIGHT WITHIN REACH. WILL CPOC.
--- NOTE | 2020-02-22 03:30 | NUR ---
PATIENT RESTING COMFORTABLY IN BED. RESPIRATIONS ARE EVEN AND UNLABORED. NO S/S OF DISTRESS. NO C/O PAIN. CALL LIGHT WITHIN REACH. WILL CPOC.
[2020-02-22 05:13] VITALS: BP 105/57
--- NOTE | 2020-02-22 07:43 | NUR ---
IN AND OUT CATH DONE FOR UA SPECIMEN. OP CLEAR YELLOW.
[2020-02-22 08:14] LABS: GLUCOSE NEGATIVE (NEGATIVE); KETONE NEGATIVE (NEGATIVE); NITRITE POSITIVE (NEGATIVE); UROBILINOGEN NORMAL (NORMAL)
[2020-02-22 08:15] LABS: BILIRUBIN NEGATIVE (NEGATIVE)
[2020-02-22 08:16] LABS: BACTERIA MANY /hpf (NEGATIVE); EPITHELIAL CELLS 0-5 /hpf (0-5); RED CELLS - URINE 0-5 /hpf (0-5)
[2020-02-22 08:59] VITALS: BP 119/47
[2020-02-22 13:14] LABS: SPE - A/G RATIO 1.2 (0.7-1.7); SPE - ALBUMIN 3.4 g/dL (2.9-4.4); SPE - ALPHA-1 GLOBULIN 0.3 g/dL (0.0-0.4); SPE - ALPHA-2 GLOBULIN 0.9 g/dL (0.4-1.0); SPE - GAMMA GLOBULIN 0.7 g/dL (0.4-1.8); SPE - M-SPIKE Not Observed g/dL (Not Observed); SPE - TOTAL PROTEIN 6.3 g/dL (6.0-8.5)
[2020-02-22 13:21] VITALS: BP 109/50
[2020-02-22 20:00] VITALS: BP 119/55
[2020-02-23] VITALS (50 sets, daily range): BP systolic 118–162; BP diastolic 48–67
[2020-02-23 10:43] LABS: INR 1.23 (0.85-1.17); PROTIME 15.4 SECONDS (11.6-15.0)
--- NOTE | 2020-02-23 12:02 | NUR ---
Nutrition Follow-up: CABG today. Wt: 143.3# (02/21); 149.9# (02/17) Labs reviewed Meds reviewed -Rec ADAT as medically feasible following surgery; if unable to advance diet within 24-48 hrs, rec consider nutrition support. -Monitor wt. -RD following.
--- NOTE | 2020-02-23 13:13 | NUR ---
1155 PT RECIEVED FROM OR SEDATED FROM SURGERY ETT 8.0 SECURED AND PLACED ON VENT BY RT, R IJ CVLDRESSING CDI, SEE IV FLOWSHEET, R RADIAL A LINE ZEROED, GOOD WAVEFORM, WRIST PROTECTOR IN PLACE, MIDSTERNAL DRESSING CDI SUBSTERNAL TPM WIRES ATTACHED TO TPM, TPM OFF, JANAY DRAIN COMPRESSED WITH BLOODY DRAINAGE, CT (2 Y'D TOGETHER) TO 20 CM SUCTION NO AIR LEAK WITH BLOODY DRAINAGE, RLE HARVEST SITES WITH COBAN GROIN TO ANKLE, LLE KELLY/SCDS IN PLACE, JAUREGUI DRAINING YELLOW URINE ABGS REVIEWED BY DR MURRY IN UNIT
--- NOTE | 2020-02-23 13:58 | NUR ---
[address] FINK NURSE COURTNI OF BLEEDING NOTED TO SUBSTERNAL DRESSING, CHEST TUBES DRAINING BLOODY DRAINAGE, DRESSING REMOVED AND R CT APPEARS TO BE CLOTTING NEAR INSERTION SITE. DRESSING CHANGED. [address] MURRY AND NOTIFIED, NEW ORDERS FOR PLATELETS AND HE STATED HE WOULD COME ASSESS PT
[2020-02-23 14:10] LABS: BETA-2 MICROGLOBULIN 2.1 mg/L (0.6-2.4)
--- NOTE | 2020-02-23 14:35 | NUR ---
DR MURRY AT BEDSIDE, CHANGED CHEST TUBES FROM 2 Y'D TOGETHER TO TWO SINGLE TUBES PLUS THE JANAY DRAIN, THE ORIGINAL CHEST TUBE CANISTER LABELED ANTERIOR IS TO THE LEFT CHEST TUBE AND THE RIGHT CHEST TUBE IS TO THE NEW CANISTER LABELED POSTERIOR.
--- NOTE | 2020-02-23 16:30 | NUR ---
ABGS VITALS, I&OS CALLED TO DR ANTON, STATED TO MONITOR UNTIL 1699 THEN POSSIBLE EXTUBATION
--- NOTE | 2020-02-23 16:43 | NUR ---
TPM CHANGED TO [address] ANTON
--- NOTE | 2020-02-23 16:55 | NUR ---
PT EXTUBATED AND RESTRAINTS REMOVED AT THIS TIME
--- NOTE | 2020-02-23 18:29 | NUR ---
DR ANTON UPDATED ON PT, NO NEW ORDERS
--- NOTE | 2020-02-23 19:15 | NUR ---
PT RECEIVED WITH EYES CLOSED AND CHEST RISING. EASILY AWOKEN TO VERBAL STIMULI. NO S/S OF DISTRESS. RIGHT IJ WITH PLASMALYTE 100ML/HR, AMIODARONE 0.5MG/MIN, INSULIN 6 UNITS/H, ZINACEF 12.8 ML/HR, NITRO 25 MCG/KG/MIN. RIGHT RADIAL ARTLINE WITH GOOD WAVEFORM, ZEROED. CVP ZEROED. ANTERIOR AND POSTERIOR CHEST TUBES, JANAY DRAIN WITH BLOODY DRAINAGE, DRESSING C/D/I. TEMPORARY PACEMAKER RATE AAI RATE 90 A OUTPUT 20, A SENSITIVITY 0.4. N/C 3LPM. DRESSING TO MIDSTERNAL INCISION C/D/I, RLE HARVEST SITE COBAN DRESSING ANKLE TO GROIN C/D/I. ICE CHIPS GIVEN TOLERATED WELL. WILL CONTINUE TO OBSERVE.
--- NOTE | 2020-02-23 22:10 | NUR ---
WITH EYES CLOSED AND CHEST RISING, EASILY AWOKEN TO ROOM ENTRY. SCHEDULED MEDICATIONS GIVEN, TOLERATED WELL. NO S/S OF DISTRESS. WILL CONTINUE TO OBSERVE.
--- NOTE | 2020-02-23 23:40 | NUR ---
PT WITH EYES OPEN, NO COMPLAINTS MADE KNOWN. WILL CONTINUE TO OBSERVE.
[2020-02-24] VITALS (49 sets, daily range): BP systolic 113–152; BP diastolic 50–69
--- NOTE | 2020-02-24 01:40 | NUR ---
PT DANGLED ON SIDE OF BED, TOLERATED WELL. NO EXCESSIVE DRAINAGE NOTED TO CHEST TUBES. PT BEGAN BELCHING WHILE SITTING UP. PT BACK IN BED, NO S/S OF DISTRESS. WILL CONTINUE TO OBSERVE.
[2020-02-24 06:27] LABS: HEMATOCRIT 30.8 % (36.0-48.0); HEMOGLOBIN 10.1 g/dL (12-16); MCH 32.3 pg (26.0-34.0); MCHC 32.8 g/dL (31.0-37.0); MCV 98.4 fL (80.0-100.0); MEAN PLATELET VOLUME 9.6 fL (7.4-10.4); RBC 3.13 10x6/uL (4.00-5.40); RDW 18.4 % (11.5-14.5); WBC 10.3 10x3/uL (4.8-10.8)
[2020-02-24 06:51] LABS: ALBUMIN 2.9 g/dL (3.4-5.0); ALKALINE PHOSPHATASE 58 U/L (30-120); ALT (SGPT) 57 U/L (10-68); BILIRUBIN - TOTAL 0.56 mg/dL (0.2-1.3); CALC OSMOLALITY 279 mosm/kg (275-300); CALCIUM 7.6 mg/dL (8.5-10.1); CARBON DIOXIDE 26.7 mmol/L (21.0-32.0); CHLORIDE - SERUM 104 mmol/L (98-107); CREATININE - SERUM 0.7 mg/dL (0.6-1.3); POTASSIUM - SERUM 3.8 mmol/L (3.5-5.1); PROTEIN - SERUM 5.6 g/dL (6.4-8.2); SODIUM 138 mmol/L (136-145); UREA NITROGEN 14 mg/dL (7-18); eGFR NON AFRICAN AMERICAN 86 mL/min (90-120)
--- NOTE | 2020-02-24 06:55 | NUR ---
CHG BATH GIVEN WITH JAUREGUI CARE, DRESSING CHANGE. PT UP TO CHAIR AT BEDSIDE, TOLERATED WELL.
[2020-02-24 06:58] LABS: GLUCOSE 153 mg/dL (74-106)
--- NOTE | 2020-02-24 07:05 | NUR ---
RECEIVED BEDSIDE REPORT FROM OFF-GOING NURSE.
--- NOTE | 2020-02-24 07:30 | NUR ---
ASSESSMENT PERFORMED. PATIENT IS UP IN RECLINER AT BEDSIDE. C/O CHEST INCISIONAL PAIN 10/10 ON NUMERICAL PAIN SCALE. ASKING TO GO BACK TO BED. EDUCATION PROVIDED ON ORDERED ACTIVITY LEVEL POST-OP DAY 1.
--- NOTE | 2020-02-24 07:37 | NUR ---
PERCOCET 10MG X 1 TAB GIVEN FOR C/O SEVERE PAIN. CLEAR LIQUID BREAKFAST GIVEN.
--- NOTE | 2020-02-24 10:15 | NUR ---
DR. DESEAN CHAND. ATRIAL PACEMAKER TURNED OFF. SINUS RHYTHM 68 TO 72 RATE ON MONITOR.
--- NOTE | 2020-02-24 10:30 | NUR ---
NOTED NITROGLYCERINE DRIPPED TURNED OFF BY DR. ANTON. BP STABLE AT THIS TIME.
--- NOTE | 2020-02-24 11:35 | NUR ---
CLEAR LIQUID LUNCH TRAY SERVED. REMAINS UP IN CHAIR.
--- NOTE | 2020-02-24 13:15 | NUR ---
PATIENT ASSISTED BACK TO BED. DR. ANTON HERE. ANTERIOR AND POSTERIOR CHEST TUBES REMOVED. EPICARDIAL LEADS REMAIN CONNECTED TO PACING CABLES. STERILE 4X4 DRESSING WITH OCCLUSIVE TEGADERM APPLIED. JANAY DRAIN TO BULB SUCTION INTACT.
--- NOTE | 2020-02-24 13:45 | NUR ---
CVP MONITORING DISCONTINUED PER ORDER. LUMEN OF CENTRAL CAPPED. RIGHT RADIAL ARTERIAL LINE REMOVED. HEMOSTASIS ACHEIVED AND STERILE 4X4 AND TEGADERM DRESSING APPLIED. JAUREGUI CATHETER REMOVED. 200MLS URINE OUTPUT. PLASMALYTE A DECREASED TO 30ML/HR VIA WHITE PORT OF CENTRAL LINE.
--- NOTE | 2020-02-24 14:45 | NUR ---
PT HERE TO AMBULATE. PATIENT IS RELUCTANT. C/O PAIN 05/05. PERCOCET 5MG PO GIVEN FOR PAIN.
--- NOTE | 2020-02-24 15:20 | NUR ---
PATIENT REPORTS CHEST INCISION PAIN IS NOW 8/10 DOWN FROM 05/05. ENCOURAGED INCENTIVE SPIROMETRY. POOR EFFORT < 500CC. SCD'S ON WHILE IN BED.
--- NOTE | 2020-02-24 19:35 | NUR ---
REPORT REC'D AND CARE ASSUMED, REC'D PT SITTING UP IN BED WITH O2 @ 3LITERS VIA NC, PT MAEE, MIDSTERNAL DRSG CDI, RIJ CVL DRSG CDI WITH PLASMALYTE @ 30CC/HR, LEFT SUBTERNAL JANAY DRAIN COMPRESSED WITH SANGUINOUS DRAINAGE, DRSG TO PREVIOUS CT SITES, CDI, RIGHT LEG HARVEST SITES, GENERALIZED EDEMA, PT REQUIRES ASSISTANCE TO SIT UP IN BED, PPP, BILAT SCDS AND TEDS, BED IN LOW POSITION, VISIBLE FROM NURSES STATION.
--- NOTE | 2020-02-24 21:20 | NUR ---
EVENING MEDS GIVEN, PT RATING PAIN IN CHEST " 8" ON 0-10 PAIN SCALE, PERCOCET 10/325 GIVEN FOR PAIN, PT ASSISTED TO REPOSITION IN BED FOR COMFORT, PT PULLING 500 ON IS, STRONG PRODUCTIVE COUGH NOTED, PT DENIES FURTHER NEEDS.
--- NOTE | 2020-02-24 23:30 | NUR ---
REASSESSMENT COMPLETED, PT ASSISTED UP TO BATHROOM TO VOID, VOIDED APPROXIMATELY 250CC NONA COLORED URINE, ASSISTED BACK TO BED X 1 ASSIST, PT TOLERATED WELL.
[2020-02-25] VITALS (24 sets, daily range): BP systolic 120–149; BP diastolic 47–69
--- NOTE | 2020-02-25 01:30 | NUR ---
PT ASSISTED UP X 1 ASSIST TO BATHROOM AND THEN ASSISTED BACK TO BED, PT'S GAIT STEADY, DENIES DIZZINESS, ICE WATER PROVIDED ON REQUEST, BED IN LOW POSITION, CALL LIGHT IN REACH.
--- NOTE | 2020-02-25 03:00 | NUR ---
REASSESSMENT COMPLETED, RT AT BS GIVING PT BREATHING TREATMENT, PT PULLING 500 ON IS, ASSISTED TO REPOSITION FOR COMFORT, PT DENIES FURTHER NEEDS, VSS.
--- NOTE | 2020-02-25 03:45 | NUR ---
PT COMPLAINS OF MIDSTERNAL PAIN, ATTEMPTING TO COUGH, RATING PAIN "9" ON 0-10 PAIN SCALE PERCOCET 10 GIVEN FOR PAIN, PT ASSISTED TO SIT UP IN BED, WILL CONT TO MONITOR.
--- NOTE | 2020-02-25 03:50 | NUR ---
PT COMPLAINS OF BEING NAUSEATED, EMESIS BAG AND COOL CLOTH PROVIDED, 4MG ZOFRAN GIVEN SLOW IVP, SR UP X 2, CALL LIGHT IN REACH.
--- NOTE | 2020-02-25 03:55 | NUR ---
RADIOLOGY AT BS FOR AM CXR
--- NOTE | 2020-02-25 05:00 | NUR ---
PT RESTING IN BED, EYES CLOSED, RESP EVEN AND UNLABORED, VSS, WILL CONT TO MONITOR.
--- NOTE | 2020-02-25 06:15 | NUR ---
PT ASSISTED TO BATHROOM AND THEN TO CHAIR TO SIT FOR BREAKFAST, BEDSIDE TABLE AND CALL LIGHT IN REACH.
[2020-02-25 07:14] LABS: HEMATOCRIT 31.2 % (36.0-48.0); HEMOGLOBIN 10.3 g/dL (12-16); MCH 33.2 pg (26.0-34.0); MEAN PLATELET VOLUME 9.4 fL (7.4-10.4); RBC 3.1 10x6/uL (4.00-5.40); RDW 17.6 % (11.5-14.5); WBC 10.2 10x3/uL (4.8-10.8)
[2020-02-25 07:15] LABS: MCV 100.6 fL (80.0-100.0)
[2020-02-25 07:26] LABS: ALBUMIN 2.8 g/dL (3.4-5.0); ALKALINE PHOSPHATASE 67 U/L (30-120); ALT (SGPT) 47 U/L (10-68); BILIRUBIN - TOTAL 0.72 mg/dL (0.2-1.3); CALC OSMOLALITY 269 mosm/kg (275-300); CALCIUM 8.4 mg/dL (8.5-10.1); CARBON DIOXIDE 28.7 mmol/L (21.0-32.0); CHLORIDE - SERUM 101 mmol/L (98-107); CREATININE - SERUM 0.7 mg/dL (0.6-1.3); GLUCOSE 119 mg/dL (74-106); POTASSIUM - SERUM 3.8 mmol/L (3.5-5.1); PROTEIN - SERUM 5.9 g/dL (6.4-8.2); SODIUM 135 mmol/L (136-145); UREA NITROGEN 10 mg/dL (7-18); eGFR NON AFRICAN AMERICAN 86 mL/min (90-120)
--- NOTE | 2020-02-25 20:10 | NUR ---
REC'D FROM OFF-GOING NURSE, CARE ASSUMED. R IJ PATENT, SALINE LOCKED. MIDSTERNAL AND SUBSTERNAL DRSGS C/D/I. L INNER THIGH DRSG C/D/I. JANAY DRAIN PATENT, COMPRESSED WITH SANGUINOUS DRAINAGE NOTED. SYLWIA TEDS IN PLACE. SR PER MONITOR. DENIES NEEDS.
--- NOTE | 2020-02-25 23:30 | NUR ---
HAS BEEN UP TO BR X 2 THUS FAR, VOIDING 200-300 EACH TIME. DENIES NEEDS
[2020-02-26] VITALS (21 sets, daily range): BP systolic 110–139; BP diastolic 38–73
--- NOTE | 2020-02-26 04:15 | NUR ---
HAS RESTED THROUGHOUT THE NIGHT EXCEPT TRIPS TO BATHROOM. DENIES NEEDS. WILL CONT TO MONITOR.
[2020-02-26 08:49] LABS: HEMATOCRIT 30.6 % (36.0-48.0); HEMOGLOBIN 9.7 g/dL (12-16); MCH 32.4 pg (26.0-34.0); MCHC 31.7 g/dL (31.0-37.0); MCV 102.3 fL (80.0-100.0); MEAN PLATELET VOLUME 9.6 fL (7.4-10.4); RBC 2.99 10x6/uL (4.00-5.40); RDW 16.7 % (11.5-14.5)
[2020-02-26 08:55] LABS: WBC 6.8 10x3/uL (4.8-10.8)
[2020-02-26 09:54] LABS: ALBUMIN 2.5 g/dL (3.4-5.0); ALKALINE PHOSPHATASE 71 U/L (30-120); ALT (SGPT) 37 U/L (10-68); BILIRUBIN - TOTAL 0.57 mg/dL (0.2-1.3); CALC OSMOLALITY 273 mosm/kg (275-300); CALCIUM 8.5 mg/dL (8.5-10.1); CARBON DIOXIDE 30.6 mmol/L (21.0-32.0); CHLORIDE - SERUM 102 mmol/L (98-107); CREATININE - SERUM 0.7 mg/dL (0.6-1.3); GLUCOSE 115 mg/dL (74-106); POTASSIUM - SERUM 3.9 mmol/L (3.5-5.1); PROTEIN - SERUM 5.8 g/dL (6.4-8.2); SODIUM 137 mmol/L (136-145); UREA NITROGEN 11 mg/dL (7-18); eGFR NON AFRICAN AMERICAN 86 mL/min (90-120)
--- NOTE | 2020-02-26 14:12 | NUR ---
1400: R IJ DC'D PER ORDER . MANUAL PRESSURE HELD X 3 MIN AND SITE DRESSED WITH 2X2 AND TEGADERM.
--- NOTE | 2020-02-26 20:15 | NUR ---
REC'D PAT. AWAKE, ALERT FROM OFF-GOING NURSE. CARE ASSUMED. INITIAL ASSESSMENT COMPLETED AND RECORDED PER FLOW SHEET. LUNGS S/W DIMINISHED AND WHEN STARTED TO GET UP TO GO TO THE BATHROOM, DEVELOPED A VERY PRODUCTIVE COUGH BUT NO RESULTS. MIDSTERNAL AND SUBSTERNAL DRGS C/D/I WITH JANAY DRAIN IN PLACE, NOTED SEROSANGUINOUS DRAINAGE, BULB COMPRESSED. SYLWIA TEDs IN PLACE. PPP X 4. DENIES ANY NEEDS AT PRESENT OR DISCOMFORT. WILL MONITOR FOR FURTHER COUGHING AND ENCOURAGE INCENTIVE SPIROMETER TO CONT ELICITING THE COUGH.
--- NOTE | 2020-02-26 23:30 | NUR ---
SON HAD BEEN IN AT 9PM VISIT, PROGRESS REPORT GIVEN. LYING QUIETLY AT PRESENT, HAS BEEN UP X2 THUS FAR TO BATHROOM WITH CONT EXERTIONAL DYSP BY TIME RETURNS FROM BATHROOM. WILL MONITOR.
[2020-02-27] VITALS (22 sets, daily range): BP systolic 107–149; BP diastolic 40–83
--- NOTE | 2020-02-27 02:45 | NUR ---
LYING QUIETLY. HAS BEEN UP TO BR X ONCE MORE SO FAR. CONT TO NOTICE VERY PRODUCTIVE SOUNDING COUGH OCCASIONALLY. O2 SATS MAINTAINING W/O DIFF. DENIES NEEDS AT PRESENT
[2020-02-27 05:59] LABS: HEMATOCRIT 31.9 % (36.0-48.0); HEMOGLOBIN 10.2 g/dL (12-16); MCH 32.5 pg (26.0-34.0); MCV 101.6 fL (80.0-100.0); MEAN PLATELET VOLUME 9.2 fL (7.4-10.4); RBC 3.14 10x6/uL (4.00-5.40); RDW 16.2 % (11.5-14.5)
[2020-02-27 06:04] LABS: WBC 4.8 10x3/uL (4.8-10.8)
[2020-02-27 06:15] LABS: ALBUMIN 2.5 g/dL (3.4-5.0); ANION GAP 6.4 mmol/L (8-16); BILIRUBIN - TOTAL 0.67 mg/dL (0.2-1.3); CALCIUM 8.4 mg/dL (8.5-10.1); CARBON DIOXIDE 34.3 mmol/L (21.0-32.0); CREATININE - SERUM 0.8 mg/dL (0.6-1.3); POTASSIUM - SERUM 3.7 mmol/L (3.5-5.1); PROTEIN - SERUM 5.9 g/dL (6.4-8.2)
--- NOTE | 2020-02-27 09:36 | NUR ---
0700 PT RECIEVED ALERT AN DORIENTED, ASSISTED OOB, JANAY DRAIN COMPRESSED AND TPM WIRES COILED UNDER SUBSTERNAL DRESSING, CDI, O2 WEANED TO 2L NC, SEE SHIFT ASSESSMENT FOR DETAILS 0900 TOOK AM MEDS WITHOUT DIFFICULTY, KCL ORDER RECIEVED FROM DR MURRY, ATE 50% BREAKFAST
--- NOTE | 2020-02-27 11:10 | NUR ---
Nutrition Follow-up: POD 4 CABG. Pt reports poor appetite. Ate ~50% of breakfast this AM. Denies N/V. -BM; +flatus. Agreed to try Ensure. Diet: Regular PO intake: 44% avg x last 4 meals Wt: 152# (02/26); 144.3# (02/23) Labs noted: Ca 8.4, Alb 2.5 Meds noted: Protonix, Senokot, Colace -Encourage PO intake and honor food preferences within diet restrictions. -Send Ensure with lunch today for pt trial. -Monitor wt. -RD following.
--- NOTE | 2020-02-27 15:12 | OP ---
PATIENT NAME: PIERRE KRAFT MEDICAL RECORD: [id number] :42 LOCATION:[id number] ADMISSION DATE:02/18/20 SURGEON: EZ MURRY MD DATE OF OPERATION: 02/23/2020 SURGEON: Ez Murry MD PROCEDURE PERFORMED: Coronary artery bypass graft times 2 (left internal mammary to LAD, reverse saphenous vein graft from aorta to posterior descending artery). PREOPERATIVE DIAGNOSES: Coronary artery disease with left main coronary artery stenosis. POSTOPERATIVE DIAGNOSES: Coronary artery disease with left main coronary artery stenosis. ANESTHESIA: General endotracheal anesthesia. ESTIMATED BLOOD LOSS: Total cardiopulmonary bypass with Cell Saver retransfusion, 1 platelet, 3 packed red blood cells transfused. COMPLICATIONS: None. SPECIMENS: None. CONDITION: Stable. DISPOSITION: CV ICU. OPERATIVE FINDINGS: 1. Preoperatively, the cardiac catheterization appeared to have a low origin of the right coronary artery. The low origin of the right coronary artery made engaging the right for an angiogram difficult, but of the 4 images of the right reviewed with cardiology, it appeared the patient did have a significant proximal PDA lesion. Intraoperatively, there was plaque at both of these locations, so the PDA was grafted. It was a 2.0-mm vessel and the greater saphenous vein was harvested from the right thigh with 2 incisions and it was of large caliber after attempt at harvest of the 2-3 mm vein above the knee on left resulted in only a thin thin-walled small vessel and it was not removed. 2. Good quality left internal mammary artery to LAD, 1.5 mm. 3. Fatty heart good contractility, KRISTOPHER not used. 4. Diagonal vessels were small and not grafted. 5. Chronic anemia. 6. 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 This area had an air leak, controlled with pledgeted sutures and Progel. OPERATIVE INDICATION: Left main coronary artery stenosis. PROCEDURE IN DETAIL: The patient was brought to the operative suite, general anesthesia was obtained. The patient was prepped and draped. Greater saphenous vein was visualized on the left, but was small, thin and superficial. This wound was closed. The right proximal greater saphenous vein was harvested through two bridging incisions and removed. Side branches were tied and the leg OPERATIVE REPORT [id number] PIERRE KRAFT was closed in 2 layers. Median sternotomy incision was made. Subcutaneous tissue was divided with electrocautery. Sternum was divided with a saw. The left hemisternum was elevated. Left internal mammary artery and veins were taken as a pedicle graft. Sternal retractor was placed. Pericardium was opened. Heparin was given. Aorta was cannulated. Dual stage venous cannula was inserted. Activated clotting time was appropriately elevated and the patient was placed in cardiopulmonary bypass. Sites for distal anastomosis were selected. Internal mammary was clipped distally and made ready for anastomosis. Antegrade cardioplegic cannula was inserted. Temperature drifted downwardly to 34 degrees. Crossclamp was placed. Cardioplegia was given antegrade and this was repeated at 15 to 20 minute intervals including down the completed vein graft. Distal anastomoses were performed in standard technique. Proximal anastomosis with single cross-clamp technique. Aortic root de-aired. Proximal anastomosis tied down. Vein graft de-aired and flow restored. A single suture in the proximal for bleeding. The graft lay appropriately. The patient was fully rewarmed and weaned from cardiopulmonary bypass and was stable. The patient was decannulated. Cannulation sites were oversewn with pledgeted sutures on the atrium and the aorta. The area of the left upper lobe was closed with pledgeted suture. Left chest was evacuated and irrigated. The internal mammary harvest site inspected for bleeding. A drain was placed in the mediastinum and left pleural cavity. Atrial ventricular pacing wires were placed and the patient was atrially paced due to sinus bradycardia. Pericardial fat was approximated. Sternum was closed with wires. Fascia was closed. Subcutaneous tissue was closed. Skin was closed. Dermabond was placed. Needle and sponge counts were reported as correct. The patient was taken to ICU in stable condition. TRANSINT:[id number] Voice Confirmation ID: [id number] DOCUMENT ID: [id number] EZ MURRY MD at 1512 CC: DANIELE DOWNS M.D. and DELON AVELAR MD [id number] DICTATION DATE: 02/23/20 1325 SSN/SSBN WEAPONS EQUIPMENT OPERATOR: 02/23/20 1526 ADM IN [place] [id number] [place] [address]
--- NOTE | 2020-02-27 16:58 | NUR ---
1000 PT AMBULATED WITH THERAPY 1200 PT ATE 100% LUNCH 1300 CHG BATH DONE 1500 AMBULATED WITH THERAPY 1650 DINNER TRAY SERVED
--- NOTE | 2020-02-27 19:20 | NUR ---
PT RECEIVED IN BED WITH EYES CLOSED AND CHEST RISING. NO S/S OF DISTRESS. EASILY AWOKEN TO VERBAL STIMULI. NO COMPLAINTS OF PAIN. DENIES ANY NEEDS AT THIS TIME. VITAL SIGNS STABLE. FRESH ICE WATER PROVIDED. CALL LIGHT IN REACH. WILL CONTINUE TO OBSERVE.
[2020-02-28] VITALS (25 sets, daily range): BP systolic 98–152; BP diastolic 44–107
--- NOTE | 2020-02-28 00:40 | NUR ---
PT RESTING WITH EYES CLOSED AND CHEST RISING. NO S/S OF DISTRESS. CALL LIGHT IN REACH. WILL CONTINUE TO OBSERVE.
[2020-02-28 05:47] LABS: HEMATOCRIT 31.3 % (36.0-48.0); HEMOGLOBIN 9.9 g/dL (12-16); MCHC 31.6 g/dL (31.0-37.0); MCV 101.3 fL (80.0-100.0); RBC 3.09 10x6/uL (4.00-5.40); RDW 15.8 % (11.5-14.5); WBC 4.2 10x3/uL (4.8-10.8)
[2020-02-28 06:03] LABS: ALBUMIN 2.5 g/dL (3.4-5.0); ANION GAP 7.2 mmol/L (8-16); BILIRUBIN - TOTAL 0.42 mg/dL (0.2-1.3); CALCIUM 8.6 mg/dL (8.5-10.1); CARBON DIOXIDE 32.5 mmol/L (21.0-32.0); CREATININE - SERUM 0.8 mg/dL (0.6-1.3); POTASSIUM - SERUM 3.7 mmol/L (3.5-5.1)
--- NOTE | 2020-02-28 09:17 | NUR ---
0700 PT RECIEVED UP IN CHAIR ALERT AND ORIENTED VSS DENIES PAIN, DISCUSSED IMPORTANCE OF USING IS, PT PULLING 500 X10 BREATHES, MIDSTERNAL DRESSING CDI SUBSTERNAL TPM WIRES COILED JANAY DRAIN COMPRESSED, RLE HARVEST SITES MARCO 0900 TOOK AM MEDS AND ATE 75% BREAKFAST
--- NOTE | 2020-02-28 14:58 | NUR ---
JANAY DRAIN AND TPM WIRES DCD BY DR MURRY
--- NOTE | 2020-02-28 15:40 | NUR ---
Rehab Note- Acute Inpatient Rehab prescreen order received. The patient continues with an acute work up with new Pulmonary consult today. Will follow at this time. Thank you for this referral! Kelley Morrow RN Clinical Liaison, [facility]
--- NOTE | 2020-02-28 18:25 | NUR ---
1100 ATE 75% LUNCH, AMBULATED WITH THERAPY 1400 AMBULATED WITH THERAPY 1700 ATE 100% DINNER
--- NOTE | 2020-02-28 19:35 | NUR ---
PT RECEIVED WITH EYES CLOSED AND CHEST RISING. NO S/S OF DISTRESS. EASILY AWOKEN WITH VERBAL STIMULATION. NO NEEDS MADE KNOWN. FRESH WATER PROVIDED. CALL LIGHT IN REACH. WILL CONTINUE TO OBSERVE.
--- NOTE | 2020-02-28 22:37 | MORECARE ---
CASE MANAGEMENT DISCHARGE SUMMARY PATIENT: PIERRE KRAFT UNIT: [id number] ADM DATE: 02/18/20 AGE: 79 : 41 SEX: F [facility] AUTHOR: NILS HIDALGO PHYSICIAN: REFERRING PHYSICIAN: DELON AVELAR MD DATE OF SERVICE: 02/28/20 Discharge Plan Patient Name: PIERRE KRAFT Facility: [facility]:[place] : 1940 Planned Disposition: Home Anticipated Discharge Date: Discharge Date: Expected LOS: Initial Reviewer: [email or web address] Initial Review Date: 02/17/2020 Generated: 02/28/20 11:36 pm Comments DCP- Discharge Planning Updated by [id number]: Debby Waldron on 02/28/20 9:[address] Patient Name: PIERRE KRAFT Admission Status: ER Accout number: [id number] Admission Date: 02-18-2020 : 1940 Admission Diagnosis:CHEST PAIN, UNSPECIFIED Attending: DELON AVELAR Current LOS: 10 Anticipated DC Date: Planned Disposition: Home Primary Insurance: MEDICARE A & B Discharge Planning Comments: CM met with patient to complete initial dc planning assessment. CM educated patient on the CM role and verbal consent given by patient to complete assessment. Patient lives at home alone. Patient is independent. At discharge patient plans to return home and feels this is a safe discharge. CM discussed availability of home health, rehab services, and medical equipment. Patient will have family to transport home. Patient is refusing Inpatient Rehab and [facility] JAYY declination signed. Patient denied known discharge needs at this time. CM will continue to follow and will assist as needed with dc plans/needs. Credentialing Specialist: Debby Waldron Coverage Notice Reviewer: [id number] - Debby Waldron Notice Issued Date-Time: 02/28/2020 19:00 Notice Type: Patient Choice Letter Notice Delivered To: Patient Relationship to Patient: Data Coordinator Name: Delivery Method: HAND - Hand Delivered Estrella Days: Prior Verbal Notification: Recipient Understood Notice: Yes Recipient Signature: Yes Med Rec Note Co-signed by Attending: Coverage Notice Comment: declined INPT REHAB and HH Patient Name: PIERRE KRAFT Page [phone] at 2237 All edits/amendments must be made on the electronic document DICTATION DATE: 02/28/202235 AUTOMATIC MACHINE ATTENDANT: ZOË 02/28/202235 RPT#: [id number] DC DATE: STATUS: ADM IN [facility] [address] [place] [address] END OF REPORT
--- NOTE | 2020-02-28 23:02 | MORECARE ---
CASE MANAGEMENT DISCHARGE SUMMARY PATIENT: PIERRE KRAFT UNIT: [id number] ADM DATE: 02/18/20 AGE: 79 : 41 SEX: F [facility] AUTHOR: ROCKY,DOC PHYSICIAN: REFERRING PHYSICIAN: DELON AVELAR MD DATE OF SERVICE: 02/28/20 Discharge Plan Patient Name: PIERRE KRAFT Facility: [facility]:[place] : 1940 Planned Disposition: Home Anticipated Discharge Date: Discharge Date: Expected LOS: Initial Reviewer: [email or web address] Initial Review Date: 02/17/2020 Generated: 02/29/20 12:02 am Comments DCP- Discharge Planning Updated by [email or web address]: Debby Waldron on 02/28/20 9:[address] Patient Name: PIERRE KRAFT Admission Status: ER Accout number: [id number] Admission Date: 02-18-2020 : 1940 Admission Diagnosis:CHEST PAIN, UNSPECIFIED Attending: DELON AVELAR Current LOS: 10 Anticipated DC Date: Planned Disposition: Home Primary Insurance: MEDICARE A & B Discharge Planning Comments: CM met with patient to complete initial dc planning assessment. CM educated patient on the CM role and verbal consent given by patient to complete assessment. Patient lives at home alone. Patient is independent. At discharge patient plans to return home and feels this is a safe discharge. CM discussed availability of home health, rehab services, and medical equipment. Patient will have family to transport home. Patient is refusing Inpatient Rehab and [facility] JAYY declination signed. Patient denied known discharge needs at this time. CM will continue to follow and will assist as needed with dc plans/needs. Order Desk Clerk: Debby Waldron DCPIA - Discharge Planning Initial Assessment Updated by [id number]: Debby Waldron on 02/28/20 10:57 pm * Is the patient Alert and Oriented? Yes * How many steps to enter\exit or inside your home? * PCP [facility] * Pharmacy [facility] * Preadmission Environment Home Alone * ADLs Independent * Equipment None * List name and contact numbers for known caregivers / representatives who currently or will assist patient after discharge: GARTH KRAFT - DAUGHTER - [phone] * Verbal permission to speak to the caregivers and representatives has been obtained from the patient. Yes * Community resources currently utilized None * Additional services required to return to the preadmission environment? No * Can the patient safely return to the preadmission environment? Yes * Has this patient been hospitalized within the prior 30 days at any hospital? No Coverage Notice Reviewer: [email or web address] Jefry Waldron Notice Issued Date-Time: 02/28/2020 19:00 Notice Type: Patient Choice Letter Notice Delivered To: Patient Relationship to Patient: Tank Welder Name: Delivery Method: HAND - Hand Delivered Estrella Days: Prior Verbal Notification: Recipient Understood Notice: Yes Recipient Signature: Yes Med Rec Note Co-signed by Attending: Coverage Notice Comment: declined INPT REHAB and HH Last DP export: 02/28/20 9:37 pm Patient Name: PIERRE KRAFT Page [phone] at 2302 All edits/amendments must be made on the electronic document DICTATION DATE: 02/28/202301 DIVISION TOLL WIRE CHIEF: ZOË 02/28/202301 RPT#: [id number] DC DATE: STATUS: ADM IN [facility] [address] [place] [address] END OF REPORT
--- NOTE | 2020-02-28 23:10 | MORECARE ---
CASE MANAGEMENT DISCHARGE SUMMARY PATIENT: PIERRE KRAFT UNIT: [id number] ADM DATE: 02/18/20 AGE: 79 : 41 SEX: F [facility]OM[facility]BED: [facility] AUTHOR: ROCKY,DOC PHYSICIAN: REFERRING PHYSICIAN: DELON AVELAR MD DATE OF SERVICE: 02/28/20 Discharge Plan Patient Name: PIERRE KRAFT Facility: [facility]:[place] : 1940 Planned Disposition: Home Anticipated Discharge Date: Discharge Date: Expected LOS: Initial Reviewer: [email or web address] Initial Review Date: 02/17/2020 Generated: 02/29/20 12:09 am Comments DCP- Discharge Planning Updated by [id number]: Debby Waldron on 02/28/20 9:[address] Patient Name: PIERRE KRAFT Admission Status: ER Accout number: [id number] Admission Date: 02-18-2020 : 1940 Admission Diagnosis:CHEST PAIN, UNSPECIFIED Attending: DELON AVELAR Current LOS: 10 Anticipated DC Date: Planned Disposition: Home Primary Insurance: MEDICARE A & B Discharge Planning Comments: CM met with patient to complete initial dc planning assessment. CM educated patient on the CM role and verbal consent given by patient to complete assessment. Patient lives at home alone. Patient is independent. At discharge patient plans to return home and feels this is a safe discharge. CM discussed availability of home health, rehab services, and medical equipment. Patient will have family to transport home. Patient is refusing Inpatient Rehab and [facility] JAYY declination signed. Patient denied known discharge needs at this time. CM will continue to follow and will assist as needed with dc plans/needs. Journeyman Sheet Metal Worker: Debby Waldron DCPIA - Discharge Planning Initial Assessment Updated by [email or web address]: Debby Waldron on 02/28/20 10:57 pm * Is the patient Alert and Oriented? Yes * How many steps to enter\exit or inside your home? * PCP ROS[facility] * Pharmacy [facility] * Preadmission Environment Home Alone * ADLs Independent * Equipment None * List name and contact numbers for known caregivers / representatives who currently or will assist patient after discharge: GARTH KRAFT - DAUGHTER - [phone] * Verbal permission to speak to the caregivers and representatives has been obtained from the patient. Yes * Community resources currently utilized None * Additional services required to return to the preadmission environment? No * Can the patient safely return to the preadmission environment? Yes * Has this patient been hospitalized within the prior 30 days at any hospital? No Coverage Notice Reviewer: [id number] Jefry Waldron Notice Issued Date-Time: 02/28/2020 19:00 Notice Type: Patient Choice Letter Notice Delivered To: Patient Relationship to Patient: Aircraft Delivery Checker Name: Delivery Method: HAND - Hand Delivered Estrella Days: Prior Verbal Notification: Recipient Understood Notice: Yes Recipient Signature: Yes Med Rec Note Co-signed by Attending: Coverage Notice Comment: declined INPT REHAB and HH Last DP export: 02/28/20 10:02 pm Patient Name: PIERRE KRAFT Page [id number] at 2310 All edits/amendments must be made on the electronic document DICTATION DATE: 02/28/202308 COMPUTER NETWORK SUPPORT SPECIALIST: ZOË 02/28/202308 RPT#: [id number] DC DATE: STATUS: ADM [address] [place] [address] END OF REPORT
[2020-02-29] VITALS (24 sets, daily range): BP systolic 117–147; BP diastolic 51–72
--- NOTE | 2020-02-29 00:34 | NUR ---
22 GA IV SITED TO RIGHT FOREARM, 2 ATTEMPTS MADE. PT TOLERATED WELL.
--- NOTE | 2020-02-29 01:44 | NUR ---
PT UP TO RESTROOM. BATH GIVEN AND LINENS CHANGED. PT TOLERATED WELL.
[2020-02-29 06:38] LABS: HEMATOCRIT 30.3 % (36.0-48.0); HEMOGLOBIN 9.8 g/dL (12-16); MCH 32.2 pg (26.0-34.0); MCHC 32.3 g/dL (31.0-37.0); MCV 99.7 fL (80.0-100.0); MEAN PLATELET VOLUME 9.4 fL (7.4-10.4); RBC 3.04 10x6/uL (4.00-5.40); RDW 15.5 % (11.5-14.5); WBC 3.9 10x3/uL (4.8-10.8)
[2020-02-29 07:02] LABS: ALBUMIN 2.4 g/dL (3.4-5.0); ALKALINE PHOSPHATASE 74 U/L (30-120); ALT (SGPT) 45 U/L (10-68); BILIRUBIN - TOTAL 0.28 mg/dL (0.2-1.3); CALC OSMOLALITY 272 mosm/kg (275-300); CALCIUM 8.7 mg/dL (8.5-10.1); CARBON DIOXIDE 29.8 mmol/L (21.0-32.0); CHLORIDE - SERUM 101 mmol/L (98-107); CREATININE - SERUM 0.6 mg/dL (0.6-1.3); GLUCOSE 107 mg/dL (74-106); MAGNESIUM - SERUM 1.4 mg/dL (1.8-2.4); PHOSPHOROUS 3.6 mg/dL (2.5-4.9); POTASSIUM - SERUM 3.8 mmol/L (3.5-5.1); PROTEIN - SERUM 5.8 g/dL (6.4-8.2); SODIUM 137 mmol/L (136-145); eGFR NON AFRICAN AMERICAN > 90 mL/min (90-120)
[2020-02-29 07:06] LABS: UREA NITROGEN 9 mg/dL (7-18)
--- NOTE | 2020-02-29 08:49 | NUR ---
PATIENT UP TO BATHROOM WITH ASSIST AND TOLERATED WELL. PATIENT BACK TO CHAIR AND CALL LIGHT WITHIN REACH, BED IN LOW POSITION, AND WILL CONTINUE TO MONITOR.
--- NOTE | 2020-02-29 09:07 | NUR ---
DR. AVELAR IN TO SEE PATIENT.
--- NOTE | 2020-02-29 10:41 | NUR ---
Nutrition Follow-up: POD 6 CABG. Diet: Regular PO intake: 75-100% yesterday Wt: 153# (02/28); 149.9# (02/17) Labs noted: Glu 107, Mg 1.4, Alb 2.4 Meds noted: KDur, Protonix, Senokot, Colace, MagOx -Encourage PO intake and honor food preferences. -Monitor wt. -RD following.
--- NOTE | 2020-02-29 14:30 | NUR ---
DR. DOWNS HERE IN TO SEE PATIENT. EKG AND RHYTHM STRIPS GIVEN TO PHYSICIAN. WILL CONTINUE TO MONITOR.
--- NOTE | 2020-02-29 19:00 | NUR ---
REPORT RECEIVED. PT REQUEST ASSISTANCE TO BATHROOM. URINE WITH SMALL LOOSE BM NOTED. PT IN BED WITH NO OTHER NEEDS MADE KNOWN. CALL LIGHT IN REACH. WILL CONTINUE TO OBSERVE.
--- NOTE | 2020-02-29 20:20 | NUR ---
PT REQUEST ASSIST TO BATHROOM, URINE AND SMALL LOOSE BM NOTED. BACK IN BED. FRESH WATER PROVIDED. CALL LIGHT IN REACH. WILL CONTINUE TO OBSERVE.
--- NOTE | 2020-02-29 22:00 | NUR ---
SCHEDULED MEDICATIONS GIVEN PER MAR. ASSIST GIVEN TO BATHROOM, URINE AND SMALL LOOSE BM NOTED. SENNA AND COLACE HELD. PT IN BED. CALL LIGHT IN REACH. WILL CONTINUE TO OBSERVE.
[2020-03-01] VITALS (34 sets, daily range): BP systolic 86–153; BP diastolic 50–93
--- NOTE | 2020-03-01 00:15 | NUR ---
ASSIST GIVEN TO BATHROOM. URINE ONLY NOTED. PT IN BED. VITAL SIGNS STABLE. NO NEEDS MADE KNOWN. CALL LIGHT IN REACH. WILL CONTINUE TO OBSERVE.
--- NOTE | 2020-03-01 02:44 | NUR ---
PT ASSISTED TO BATHROOM, URINE ONLY NOTED. SUBSTERNAL DRESSING CHANGED PER PROTOCOL. NO OTHER NEEDS MADE KNOWN. CALL LIGHT IN REACH. WILL CONTINUE TO OBSERVE.
[2020-03-01 06:08] LABS: HEMATOCRIT 32.1 % (36.0-48.0); HEMOGLOBIN 10.4 g/dL (12-16); MCH 32.2 pg (26.0-34.0); MCHC 32.4 g/dL (31.0-37.0); MCV 99.4 fL (80.0-100.0); MEAN PLATELET VOLUME 9.2 fL (7.4-10.4); RBC 3.23 10x6/uL (4.00-5.40); RDW 15.5 % (11.5-14.5); WBC 4.3 10x3/uL (4.8-10.8)
[2020-03-01 06:48] LABS: ALBUMIN 2.7 g/dL (3.4-5.0); ANION GAP 9.7 mmol/L (8-16); BILIRUBIN - TOTAL 0.28 mg/dL (0.2-1.3); CALCIUM 9.2 mg/dL (8.5-10.1); CARBON DIOXIDE 30.4 mmol/L (21.0-32.0); MAGNESIUM - SERUM 1.6 mg/dL (1.8-2.4); POTASSIUM - SERUM 4.1 mmol/L (3.5-5.1); PROTEIN - SERUM 6.3 g/dL (6.4-8.2)
--- NOTE | 2020-03-01 06:50 | NUR ---
PT ASSISTED TO BATHROOM. UP IN CHAIR AT BEDSIDE. WILL CONTINUE TO OBSERVE.
[2020-03-01 06:51] LABS: CREATININE - SERUM 0.8 mg/dL (0.6-1.3)
--- NOTE | 2020-03-01 07:25 | NUR ---
PATIENT SITTING UP IN CHAIR. SHIFT ASSESSMENT COMPLETE. CALL LIGHT WITHIN REACH, BED IN LOW POSITION, WILL CONTINUE TO MONITOR.
--- NOTE | 2020-03-01 09:35 | NUR ---
PATIENT UP TO BATHROOM HAD LOOSE STOOL AND URINE OUT. PATIENT TOLERATED WELL.
--- NOTE | 2020-03-01 10:20 | NUR ---
ANESTHIA NOTIFIED OF TIVA TODAY FOR BRONCH PER DR. RAMIREZ.
--- NOTE | 2020-03-01 12:34 | NUR ---
NOTIFIED SON MR. KRAFT ABOUT PATIENTS PROCEDURE PER PATIENT REQUEST. SON UNDERSTOOD PROCEDURE AND INFORMED THAT I WOULD NOTIFY HIM OF ANY CHANGES. PATIENT SIGNED CONSENTS AND UNDERSTANDS PROCEDURE.
--- NOTE | 2020-03-01 16:15 | NUR ---
DR. RAMIREZ HERE BRONCHOSCOPY IN PROGRESS. IV INFILTRATED. IV RESTARTED IN L FA 20G CATH WITH GOOD BLOOD RETURN AND FLUSHED EASILY. IV IN R FA DC'D WITH DRESSING APPLIED.
--- NOTE | 2020-03-01 19:59 | NUR ---
ASSISTED PATIENT TO RESTROOM, MINIMAL ASSIST STEADY GAIT, PT INDEPENDENT PERSONAL CARE.
--- NOTE | 2020-03-01 21:10 | NUR ---
DAUGHTER CALLED CODE VERIFIED, PT ATTEMPTING TO CALL HER MOTHER ON CELL AND IT GOES TO VOICEMAIL. ASSISTED PATIENT WITH CALLING DAUGHTER
[2020-03-02] VITALS (22 sets, daily range): BP systolic 106–140; BP diastolic 49–68
--- NOTE | 2020-03-02 00:38 | NUR ---
PT AMBULATES OFTEN TO BATHROOM, COUGH IMPROVED WITH PRODUCTION. DIFFICULTY WITH IS. VSS CPOC
--- NOTE | 2020-03-02 02:11 | NUR ---
PT RECEIVED KEITH PER REQUEST
[2020-03-02 06:09] LABS: HEMATOCRIT 32.6 % (36.0-48.0); HEMOGLOBIN 10.6 g/dL (12-16); MCH 32.2 pg (26.0-34.0); MCHC 32.5 g/dL (31.0-37.0); MCV 99.1 fL (80.0-100.0); MEAN PLATELET VOLUME 9.1 fL (7.4-10.4); RBC 3.29 10x6/uL (4.00-5.40); RDW 15.6 % (11.5-14.5)
[2020-03-02 06:11] LABS: WBC 7.9 10x3/uL (4.8-10.8)
--- NOTE | 2020-03-02 06:15 | NUR ---
PT UP TO CHAIR AT THIS TIME. VSS CPOC
[2020-03-02 06:34] LABS: ALBUMIN 2.7 g/dL (3.4-5.0); ALKALINE PHOSPHATASE 85 U/L (30-120); ALT (SGPT) 50 U/L (10-68); BILIRUBIN - TOTAL 0.48 mg/dL (0.2-1.3); CALC OSMOLALITY 264 mosm/kg (275-300); CALCIUM 8.5 mg/dL (8.5-10.1); CARBON DIOXIDE 26.9 mmol/L (21.0-32.0); CHLORIDE - SERUM 99 mmol/L (98-107); CREATININE - SERUM 0.7 mg/dL (0.6-1.3); GLUCOSE 121 mg/dL (74-106); POTASSIUM - SERUM 4.3 mmol/L (3.5-5.1); PROTEIN - SERUM 6.4 g/dL (6.4-8.2); SODIUM 132 mmol/L (136-145); UREA NITROGEN 11 mg/dL (7-18); eGFR NON AFRICAN AMERICAN 85 mL/min (90-120)
--- NOTE | 2020-03-02 10:33 | NUR ---
Nutrition Follow-up: POD 8 CABG. Bronch yesterday. Reports not eating much this AM. Diet: Regular Wt: 144# (03/02); 149.9# (02/17) Last BM: 03/01 Labs noted: Na 132, Glu 121, Alb 2.7 Meds noted: KDur, Protonix, Colace -Encourage PO intake and honor food preferences within diet restrictions. -Offer nutrition supplements. -Monitor wt. -RD following.
--- NOTE | 2020-03-02 11:35 | NUR ---
IV L WRIST INFILTRATED. IV STARTED WITH 20G ON 2ND ATTEMPT.
--- NOTE | 2020-03-02 11:59 | NUR ---
Rehab [id number] Consult recieved and the chart has been reviewed. Previously the patient had declined acute rehab, and there is no note indicating she has changed her mind. Spoke to the CM Alexandria Waldron RN who states she will talk with the patient again about rehab as she lives at home alone. She is a good ARU candidate if she is agreeable and when her medical workup is complete. She is S/P bronchoscopy and has several tests pending. Rehab will continue to follow her progress. Tori Zuñiga RN Clinical Liaison, Rehab
--- NOTE | 2020-03-02 15:41 | NUR ---
1500-RECIEVED PER FLOW SHEET-PT APPEARS TO BE RESTING-SR ON MONITOR-R IV PLASMALYTE AT 5
--- NOTE | 2020-03-02 19:10 | MORECARE ---
CASE MANAGEMENT DISCHARGE SUMMARY PATIENT: PIERRE KRAFT UNIT: [id number] ADM DATE: 02/18/20 AGE: 80 : 41 SEX: F ROOM/BED: D.03 AUTHOR: NILS HIDALGO PHYSICIAN: REFERRING PHYSICIAN: DELON AVELAR MD DATE OF SERVICE: 03/02/20 Discharge Plan Patient Name: PIERRE KRAFT Facility: [facility]:[place] : 1940 Planned Disposition: Home Anticipated Discharge Date: Discharge Date: Expected LOS: Initial Reviewer: [email or web address] Initial Review Date: 02/17/2020 Generated: 03/02/20 8:09 pm Comments DCP- Discharge Planning Updated by [id number]: Debby Waldron on 03/02/20 6:[address] CM spoke with patient and daughter about INPT rehab and they both agree to inpatient rehab @ [facility]. CM spoke with Tori in Rehab and she stated that she would be a good candidate once she is medically stable. They would like for bronch cultures to be back before they accept. DCP- Discharge Planning Updated by [id number]: Debby Waldron on 02/28/20 9:[address] Patient Name: PIERRE KRAFT Admission Status: ER Accout number: [id number] Admission Date: 02-18-2020 : 1940 Admission Diagnosis:CHEST PAIN, UNSPECIFIED Attending: DELON AVELAR Current LOS: 10 Anticipated DC Date: Planned Disposition: Home Primary Insurance: MEDICARE A & B Discharge Planning Comments: CM met with patient to complete initial dc planning assessment. CM educated patient on the CM role and verbal consent given by patient to complete assessment. Patient lives at home alone. Patient is independent. At discharge patient plans to return home and feels this is a safe discharge. CM discussed availability of home health, rehab services, and medical equipment. Patient will have family to transport home. Patient is refusing Inpatient Rehab and [facility] JAYY declination signed. Patient denied known discharge needs at this time. CM will continue to follow and will assist as needed with dc plans/needs. Human Factors Advisor Lead: Debby Waldron DCPIA - Discharge Planning Initial Assessment Updated by [email or web address]: Debby Waldron on 02/28/20 10:57 pm * Is the patient Alert and Oriented? Yes * How many steps to enter\exit or inside your home? * PCP [facility] * Pharmacy [facility] * Preadmission Environment Home Alone * ADLs Independent * Equipment None * List name and contact numbers for known caregivers / representatives who currently or will assist patient after discharge: GARTH KRAFT - DAUGHTER - [phone] * Verbal permission to speak to the caregivers and representatives has been obtained from the patient. Yes * Community resources currently utilized None * Additional services required to return to the preadmission environment? No * Can the patient safely return to the preadmission environment? Yes * Has this patient been hospitalized within the prior 30 days at any hospital? No Coverage Notice Reviewer: [id number] Jefry Waldron Notice Issued Date-Time: 02/28/2020 19:00 Notice Type: Patient Choice Letter Notice Delivered To: Patient Relationship to Patient: Stock Order Lister Name: Delivery Method: HAND - Hand Delivered Estrella Days: Prior Verbal Notification: Recipient Understood Notice: Yes Recipient Signature: Yes Med Rec Note Co-signed by Attending: Coverage Notice Comment: declined INPT REHAB and HH Reviewer: [id number] Jefry Waldron Notice Issued Date-Time: 03/02/2020 16:40 Notice Type: Patient Choice Letter Notice Delivered To: Patient Relationship to Patient: Stock Order Lister Name: Delivery Method: HAND - Hand Delivered Estrella Days: Prior Verbal Notification: Yes Recipient Understood Notice: Yes Recipient Signature: Med Rec Note Co-signed by Attending: Coverage Notice Comment: INPATIENT REHAB [facility] Last DP export: 02/28/20 10:10 pm Patient Name: PIERRE KRAFT Page [id number] at 1910 All edits/amendments must be made on the electronic document DICTATION DATE: 03/02/201908 OUTSIDE PLANT CABLE ENGINEER: ZOË 03/02/201908 RPT#: [id number] DC DATE: STATUS: ADM IN [facility] [address] [place] [address] END OF REPORT
--- NOTE | 2020-03-02 19:45 | NUR ---
SHIFT ASSESSMENT COMPLETED, SEE FLOWSHEET - VSS CPOC
--- NOTE | 2020-03-02 21:45 | NUR ---
HS MEDICATIONS RECEIVED, PT RECEIVED CHG BATH AND FULL LINEN CHANGE. PT ABLE TO BATH WITH MINIMAL ASSISTANCE
[2020-03-03] VITALS (23 sets, daily range): BP systolic 111–153; BP diastolic 51–70
[2020-03-03 06:20] LABS: HEMOGLOBIN 10.3 g/dL (12-16); MCH 32.5 pg (26.0-34.0); MCHC 32.2 g/dL (31.0-37.0); MCV 100.9 fL (80.0-100.0); MEAN PLATELET VOLUME 8.9 fL (7.4-10.4); RBC 3.17 10x6/uL (4.00-5.40); RDW 15.6 % (11.5-14.5); WBC 4.9 10x3/uL (4.8-10.8)
[2020-03-03 06:40] LABS: ALBUMIN 2.6 g/dL (3.4-5.0); ALKALINE PHOSPHATASE 84 U/L (30-120); ALT (SGPT) 56 U/L (10-68); BILIRUBIN - TOTAL 0.43 mg/dL (0.2-1.3); CALC OSMOLALITY 277 mosm/kg (275-300); CALCIUM 8.4 mg/dL (8.5-10.1); CARBON DIOXIDE 28.4 mmol/L (21.0-32.0); CHLORIDE - SERUM 104 mmol/L (98-107); CREATININE - SERUM 0.6 mg/dL (0.6-1.3); GLUCOSE 106 mg/dL (74-106); POTASSIUM - SERUM 4.5 mmol/L (3.5-5.1); PROTEIN - SERUM 6.2 g/dL (6.4-8.2); SODIUM 139 mmol/L (136-145); UREA NITROGEN 12 mg/dL (7-18); eGFR NON AFRICAN AMERICAN > 90 mL/min (90-120)
[2020-03-03 15:10] LABS: ACID FAST SMEAR Negative (()); AFB SPECIMEN PROCESSING Concentration (())
--- NOTE | 2020-03-03 19:45 | NUR ---
SHIFT ASSESSMENT SEE FLOWSHEET
[2020-03-04] VITALS (22 sets, daily range): BP systolic 107–136; BP diastolic 42–65
[2020-03-04 06:14] LABS: HEMATOCRIT 32.5 % (36.0-48.0); HEMOGLOBIN 10.4 g/dL (12-16); MCH 31.9 pg (26.0-34.0); MCV 99.7 fL (80.0-100.0); MEAN PLATELET VOLUME 8.9 fL (7.4-10.4); RBC 3.26 10x6/uL (4.00-5.40); RDW 15.4 % (11.5-14.5); WBC 5.3 10x3/uL (4.8-10.8)
[2020-03-04 06:46] LABS: ALBUMIN 2.7 g/dL (3.4-5.0); ALKALINE PHOSPHATASE 88 U/L (30-120); ALT (SGPT) 61 U/L (10-68); BILIRUBIN - TOTAL 0.35 mg/dL (0.2-1.3); CALC OSMOLALITY 273 mosm/kg (275-300); CALCIUM 8.7 mg/dL (8.5-10.1); CARBON DIOXIDE 27.2 mmol/L (21.0-32.0); CHLORIDE - SERUM 103 mmol/L (98-107); CREATININE - SERUM 0.7 mg/dL (0.6-1.3); GLUCOSE 104 mg/dL (74-106); POTASSIUM - SERUM 4.4 mmol/L (3.5-5.1); PROTEIN - SERUM 6.2 g/dL (6.4-8.2); SODIUM 137 mmol/L (136-145); UREA NITROGEN 12 mg/dL (7-18); eGFR NON AFRICAN AMERICAN 85 mL/min (90-120)
[2020-03-05] VITALS (12 sets, daily range): BP systolic 109–129; BP diastolic 52–71
[2020-03-05 05:17] LABS: HEMATOCRIT 31.6 % (36.0-48.0); HEMOGLOBIN 10.2 g/dL (12-16); MCH 32.1 pg (26.0-34.0); MCHC 32.3 g/dL (31.0-37.0); MCV 99.4 fL (80.0-100.0); RBC 3.18 10x6/uL (4.00-5.40); RDW 15.5 % (11.5-14.5); WBC 5.2 10x3/uL (4.8-10.8)
[2020-03-05 05:36] LABS: CALC OSMOLALITY 264 mosm/kg (275-300); CALCIUM 8.4 mg/dL (8.5-10.1); CARBON DIOXIDE 27.6 mmol/L (21.0-32.0); CHLORIDE - SERUM 99 mmol/L (98-107); CREATININE - SERUM 0.7 mg/dL (0.6-1.3); GLUCOSE 102 mg/dL (74-106); POTASSIUM - SERUM 4.4 mmol/L (3.5-5.1); SODIUM 132 mmol/L (136-145); UREA NITROGEN 13 mg/dL (7-18); eGFR NON AFRICAN AMERICAN 85 mL/min (90-120)
--- NOTE | 2020-03-05 07:35 | NUR ---
AMBULATED TO BATHROOM WITH MINIMAL ASSIST. ON ROOM AIR. MIDSTERNAL INCISION VASCULAR TECH, WELL APPROXIMATED. DENIES PAIN AT THIS TIME. NO FEVER NOTED. VS STABLE. WILL CONTINUE TO MONITOR.
[2020-03-05] MEDS ORDERED: ASPIRIN EC81 M1 PO (09:07)
[2020-03-05] MEDS ORDERED: COLACE100 MG PO (09:08)
[2020-03-05] MEDS ORDERED: MUCINEX DM ER1 EAC1 PO (09:08)
[2020-03-05] MEDS ORDERED: TESSALON PERLE100 MG PO (09:08)
[2020-03-05] MEDS ORDERED: BETADINE OINTMENT TP (09:09)
[2020-03-05] MEDS ORDERED: MUPIROCIN22 GM NASAL (09:09)
--- NOTE | 2020-03-05 11:06 | NUR ---
Nutrition Follow-up: POD 11 CABG. Breakfast appeared untouched this AM but states this is because she is tired. Drinking Ensure; states she drinks ~2/day. Per MD, ok to go to rehab. Diet: Regular Wt: 143# (03/05) Last BM: 03/05 Labs noted: Na 132, Ca 8.4 Meds noted: Magnesium Chloride, KDur, Protonix, Colace -Encourage PO intake and honor food preferences. -Monitor wt. -RD following.
--- NOTE | 2020-03-05 13:15 | NUR ---
REPORT CALLED TO REHAB. PT WILL BE TRANSFERRING TO ROOM 1108B.
--- NOTE | 2020-03-05 13:26 | NUR ---
PT'S DAUGHTER GARTH NOTIFIED THAT PT WILL BE TRANSFERRED TO ROOM 1108B.
[2020-03-05 14:09] LABS: FUNGUS STAIN Final report (())
--- NOTE | 2020-03-05 20:17 | MORECARE ---
CASE MANAGEMENT DISCHARGE SUMMARY PATIENT: PIERRE KRAFT UNIT: [id number] ADM DATE: 02/18/20 AGE: 80 : 41 SEX: F ROOM/BED: D.03 AUTHOR: NILS HIDALGO PHYSICIAN: REFERRING PHYSICIAN: DELON AVELAR MD DATE OF SERVICE: 03/05/20 Discharge Plan Patient Name: PIERRE KRAFT Facility: [facility]:[place] : 1940 Planned Disposition: Home Anticipated Discharge Date: Discharge Date: 03/05/2020 Expected LOS: Initial Reviewer: [id number] Initial Review Date: 02/17/2020 Generated: 03/05/20 9:16 pm Comments DCP- Discharge Planning Updated by [id number]: Debby Waldron on 03/02/20 6:[address] CM spoke with patient and daughter about INPT rehab and they both agree to inpatient rehab @ [facility]. CM spoke with Tori in Rehab and she stated that she would be a good candidate once she is medically stable. They would like for bronch cultures to be back before they accept. DCP- Discharge Planning Updated by [email or web address]: Debby Waldron on 02/28/20 9:[address] Patient Name: PIERRE KRAFT Admission Status: ER Accout number: [id number] Admission Date: 02-18-2020 : 1940 Admission Diagnosis:CHEST PAIN, UNSPECIFIED Attending: DELON AVELAR Current LOS: 10 Anticipated DC Date: Planned Disposition: Home Primary Insurance: MEDICARE A & B Discharge Planning Comments: CM met with patient to complete initial dc planning assessment. CM educated patient on the CM role and verbal consent given by patient to complete assessment. Patient lives at home alone. Patient is independent. At discharge patient plans to return home and feels this is a safe discharge. CM discussed availability of home health, rehab services, and medical equipment. Patient will have family to transport home. Patient is refusing Inpatient Rehab and [facility] JAYY declination signed. Patient denied known discharge needs at this time. CM will continue to follow and will assist as needed with dc plans/needs. Grain Scooper: Debby Waldron DCPIA - Discharge Planning Initial Assessment Updated by [email or web address]: Debby Waldron on 02/28/20 10:57 pm * Is the patient Alert and Oriented? Yes * How many steps to enter\exit or inside your home? * PCP [facility]IO * Pharmacy [facility] * Preadmission Environment Home Alone * ADLs Independent * Equipment None * List name and contact numbers for known caregivers / representatives who currently or will assist patient after discharge: GARTH KRAFT - DAUGHTER - [phone] * Verbal permission to speak to the caregivers and representatives has been obtained from the patient. Yes * Community resources currently utilized None * Additional services required to return to the preadmission environment? No * Can the patient safely return to the preadmission environment? Yes * Has this patient been hospitalized within the prior 30 days at any hospital? No Coverage Notice Reviewer: [id number] Jefry Waldron Notice Issued Date-Time: 02/28/2020 19:00 Notice Type: Patient Choice Letter Notice Delivered To: Patient Relationship to Patient: Shop Tailor Name: Delivery Method: HAND - Hand Delivered Estrella Days: Prior Verbal Notification: Recipient Understood Notice: Yes Recipient Signature: Yes Med Rec Note Co-signed by Attending: Coverage Notice Comment: declined INPT REHAB and Reviewer: [id number] Jefry Waldron Notice Issued Date-Time: 03/02/2020 16:40 Notice Type: Patient Choice Letter Notice Delivered To: Patient Relationship to Patient: Shop Tailor Name: Delivery Method: HAND - Hand Delivered Estrella Days: Prior Verbal Notification: Yes Recipient Understood Notice: Yes Recipient Signature: Med Rec Note Co-signed by Attending: Coverage Notice Comment: INPATIENT REHAB [facility] Reviewer: [email or web address] Jefry Waldron Notice Issued Date-Time: 03/05/2020 14:05 Notice Type: IM Discharge Notice Notice Delivered To: Patient Relationship to Patient: Self Shop Tailor Name: Delivery Method: HAND - Hand Delivered Estrella Days: Prior Verbal Notification: Recipient Understood Notice: Yes Recipient Signature: Yes Med Rec Note Co-signed by Attending: Coverage Notice Comment: Last DP export: 03/02/20 6:09 pm Patient Name: PIERRE KRAFT Page [id number] at 2017 All edits/amendments must be made on the electronic document DICTATION DATE: 03/05/20 2016 PROTECTIVE SERVICES OFFICER: ZOË 03/05/20 2016 RPT#: [id number] DC DATE:03/05/20 STATUS: DIS IN [facility] [address] [facility] [place] [address] END OF REPORT
== END 2020-03-05 14:15 | DRG 233 ==
LOC: D.ER 19:48 → D.M2 21:00 → OBSVTIME 21:15 → D.CVICU 02-18 20:36 → D.M2 02-18 20:36 → D.CVICU 02-23 09:40
PROVIDERS: Family Medicine; Internal Medicine Cardiovascular Disease; Internal Medicine Hematology & Oncology; Thoracic Surgery (Cardiothoracic Vascular Surgery); ADMIT Family Medicine; ATTEND Family Medicine
PROC: B2151ZZ Fluoroscopy of Left Heart using Low Osmolar Contrast (ICD-10-PCS; 2020-02-18)
PROC: 4A023N7 Measurement of Cardiac Sampling and Pressure, Left Heart, Percutaneous Approach (ICD-10-PCS; 2020-02-18)
PROC: B2111ZZ Fluoroscopy of Multiple Coronary Arteries using Low Osmolar Contrast (ICD-10-PCS; principal; 2020-02-18 08:40)
PROC: 02100Z9 Bypass Coronary Artery, One Artery from Left Internal Mammary, Open Approach (ICD-10-PCS; 2020-02-23)
PROC: 021009W Bypass Coronary Artery, One Artery from Aorta with Autologous Venous Tissue, Open Approach (ICD-10-PCS; 2020-02-23)
PROC: 06BP0ZZ Excision of Right Saphenous Vein, Open Approach (ICD-10-PCS; 2020-02-23)
PROC: 5A1221Z Performance of Cardiac Output, Continuous (ICD-10-PCS; 2020-02-23)
PROC: B24BZZ4 Ultrasonography of Heart with Aorta, Transesophageal (ICD-10-PCS; 2020-02-23)
DX: I21.4 Non-ST elevation (NSTEMI) myocardial infarction (principal); J18.9 Pneumonia, unspecified organism; N39.0 Urinary tract infection, site not specified; D64.9 Anemia, unspecified; E87.6 Hypokalemia; I25.119 Atherosclerotic heart disease of native coronary artery with unspecified angina pectoris; Y95 Nosocomial condition; K21.9 Gastro-esophageal reflux disease without esophagitis; M19.90 Unspecified osteoarthritis, unspecified site

== ENCOUNTER 2020-03-05 15:33 | Inpatient (IN) | payer MEDICARE, OTHER ==
[~2020-03-05] VITALS: Ht 165.1 cm; Wt 54.4 kg
--- NOTE | ~2020-03-05 | RHP ---
PATIENT: PIERRE KRATF MEDICAL RECORD: [id number] ACCOUNT: [id number] LOCATION:[id number] : 42 ADMISSION DATE: 03/05/20 REHABILITATION HISTORY AND PHYSICAL EXAMINATION POST ADMISSION PHYSICIAN EXAMINATION POST ADMISSION PHYSICAL EXAMINATION AND HISTORY AND PHYSICAL ADMITTING DIAGNOSIS: Critical illness myopathy. HISTORY OF PRESENT ILLNESS: The patient arrived to the ER on after she started having some chest pain during the day. She apparently had left-sided pain in her neck and shoulder and down her arm. She did have some shortness of breath and nausea. She has no known history of heart disease. She came to the ER where she was worked up, showed hemoglobin of 8.7, hematocrit of 28.4. She was evaluated with a troponin that was elevated at 0.908. Chest x-ray showed nothing acute. She did have some changes on her EKG. She was admitted with a non-ST elevation WI and elevated troponin. Cardiology was consulted. She was placed on nitro paste, Lovenox and Plavix. She had medications adjusted. On 02/18/2020, she went to the cath lab technologist. She had left main moderately calcified at 80% with proximal stenosis of LAD and 80% stenosis of circumflex, nondominant artery. 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 Hematology was consulted for preop for severe anemia. She has had some transfusions. On 02/23/2020, she went to the OR for coronary artery bypass grafting times 2 using the internal mammary to LAD, reverse saphenous vein graft to the posterior descending artery. Postop, she went back to the CV ICU on the ventilator, successfully weaned off. She is on 4 liters via nasal cannula. She had persistent right lower lobe atelectasis and hospital-acquired pneumonia. She was taken for bronchoscopy on showing Klebsiella pneumoniae. She was treated with IV Rocephin times 7 days, been getting neb treatments. She is on Flonase and Singulair. She previously was on 2 liters of nasal cannula as needed. Currently, she has been prolonged mobility, progressive generalized weakness, especially on lower extremity. She has got low tolerance for PT and OT at this time, she is very fatigued. She has limited flexion, extension of her lower extremities. Her proximal muscle strength is decreased. She is mod to max assist for sit to stand and bed to chair. She is highly motivated to get back home and get back to her prior level of functioning. COMORBIDITIES: In this patient include non-ST segment elevation myocardial infarction, chest pain, anemia, dyspnea, degenerative disc disease, Klebsiella pneumonia, arrhythmia, sinusitis, moderate to severe left ventricular hypertrophy. PAST MEDICAL HISTORY: Significant for reflux, arthritis. She has got a history of cardiac catheterization. She got a history of cognitive decline. PAST SURGICAL HISTORY: Includes bilateral tubal ligation, left knee surgery. ALLERGIES: CELEBREX, PENICILLIN AND SULFA. CURRENT MEDICATIONS: Include Floranex daily. She is on aspirin chewable 81 mg daily, Protonix 40 mg daily, mag oxide 64 mg b.i.d., chlorhexidine mouthwash 15 cc b.i.d., potassium chloride 20 mEq b.i.d., Bactroban ointment to apply b.i.d., Mucinex 1 tab b.i.d., Colace 100 mg b.i.d., budesonide 0.5 mg, b.i.d., albuterol HISTORY AND PHYSICAL [id number] PIERRE KRAFT 2.5 mg q.i.d., polyethylene glycol 17 grams in 8 ounces of water daily, acetaminophen 650 q.4 hours p.r.n., and Tessalon Perles 100 mg t.i.d. HABITS: No alcohol or tobacco use. FAMILY HISTORY: Noncontributory. SOCIAL HISTORY: The patient hopes to return back home and get back to her prior level of function. REVIEW OF SYSTEMS: GENERAL: Does finally fatigue. HEENT: Denies cold, cough, or congestion. CARDIOVASCULAR: Denies any chest pain except musculoskeletal lung mina, does complain of some shortness of breath. PHYSICAL EXAMINATION: VITAL SIGNS: Her vital signs are stable. She is afebrile. GENERAL: Elderly female, in no acute distress, alert upon exam. HEENT: Normocephalic and atraumatic. Mucosa moist. NECK: Supple. No lymphadenopathy. LUNGS: Clear in upper ordonez. HEART: Regular rate and rhythm. ABDOMEN: Soft, benign and nondistended. Positive bowel sounds x 4. EXTREMITIES: No clubbing, cyanosis or edema. NEUROLOGIC: She is mainly intact. She does have proximal muscle strength decrease in her upper arms and also the proximal muscles of her thighs. LABORATORY DATA: White count 5.4, H&H of 11 and 34 and platelet count was noted to be 423. Sodium is 135, potassium 4.5, BUN and creatinine of 14 and 0.8, and blood sugar is noted to be 102. ASSESSMENT: This is a 80-year-old female patient admitted to rehab with a working diagnosis of critical illness myopathy. The patient has potential to make improvement. We will institute the following multidisciplinary therapies including but not limited to physical, occupational, respiratory, speech, nutritional services, prosthetics and orthotics. Given her complex medical condition and risk of further medical complications, rehabilitation services cannot be provided at a low level of care such a skilled nurse facility. PLAN: 1. Admit to [facility] for intensive inpatient therapy to include the following disciplines; A. Physical therapy to improve gait, all transfer skills and bed mobility to a modified independent level. B. Occupational therapy to improve activities of daily living. C. Case management to help with discharge planning and placement options. D. Nutrition to assist with nutritional needs. E. Rehabilitation nursing to assist in monitoring the patient's underlying medical conditions and to assist with any type of bowel or bladder management. 2. The patient's current medication and medical care will be continued 3. The patient will be placed on standard fall precautions. 4. The patient's estimated length of stay is approximately 7-10 days. 5. We will discuss this patient during care team staff meeting this week. HISTORY AND PHYSICAL [id number] PIERRE KRAFT TRANSINT:[id number] Voice Confirmation ID: [id number] DOCUMENT ID: [id number] DAVID notes whether there has been none or any medical/functional change since admission: - No change since prescreen. DAVID attests patient continues to be appropriate for IRF: - Continues to be appropriate. HAO GE MD CC: [id number] DICTATION DATE: 03/06/20 1032 WIRING TECHNICIAN: 03/06/20 1555 ADM IN [facility] [address] [id number]
[~2020-03-05 15:33] MED LIST: ASPIRIN EC81 M1 PO; BETADINE OINTMENT TP; COLACE100 MG PO; MUCINEX DM ER1 EAC1 PO; MUPIROCIN22 GM NASAL; OMEPRAZOLE20 M1 PO; TESSALON PERLE100 MG PO
[2020-03-05 17:02] VITALS: BP 120/66
[2020-03-05 19:49] VITALS: BP 122/58
--- NOTE | 2020-03-05 19:52 | NUR ---
AWAKE AND ALER. RESTING IN BED WITH REPSIRAITONS UNLABORED. CHEST INCISION INTACT WITH EDGES APPROXIMATED AND SCABBED OVER. DONOR SITE INCISIONS TO INNER THIGHS ALSO INTACT AND SCABBED OVER. DENIES PAIN. LEFT WRIST SALINE LOCK IN PLACE. ON TELEMETRY IN SINUS RHYTHM. NO ACUTE DISTRESS NOTED.
--- NOTE | 2020-03-06 01:09 | NUR ---
SLEEPING WITH REPSIRAITONS UNLABORED. NO DISTRESS NOTED.
--- NOTE | 2020-03-06 05:21 | NUR ---
QUIET HOURS. NO ACUTE CHANGES IN CONDITION THIS SHIFT. RESTING IN BED WITH NO DISTRESS NOTED.
[2020-03-06 07:42] LABS: BASOPHILS 0.4 % (0-2); HEMATOCRIT 34.2 % (36.0-48.0); HEMOGLOBIN 11.1 g/dL (12-16); IMMATURE GRANULOCYTES 0.6 % (0-5); MCH 32.6 pg (26.0-34.0); MCHC 32.5 g/dL (31.0-37.0); MCV 100.6 fL (80.0-100.0); MEAN PLATELET VOLUME 8.7 fL (7.4-10.4); MONOCYTES 8.8 % (2-11); NEUTROPHILS 61.2 % (40-80); PLATELET COUNT 423 10x3/uL (130-400); RDW 15.5 % (11.5-14.5); WBC 5.4 10x3/uL (4.8-10.8)
--- NOTE | 2020-03-06 08:00 | NUR ---
PT RESTING IN BED WITH EYES OPEN CALL LIGHT IN REACH NO PROBLEMS WILL MONITER
[2020-03-06 08:10] LABS: ANION GAP 11.4 mmol/L (8-16); CALCIUM 8.7 mg/dL (8.5-10.1); CARBON DIOXIDE 29.1 mmol/L (21.0-32.0); CREATININE - SERUM 0.8 mg/dL (0.6-1.3); POTASSIUM - SERUM 4.5 mmol/L (3.5-5.1)
[2020-03-06 13:25] VITALS: Ht 165.1 cm; Wt 54.4 kg
[2020-03-06 16:17] VITALS: BP 105/63
--- NOTE | 2020-03-06 17:43 | NUR ---
PT RESTING IN BED WITH EYES OPEN CALL LIGHT IN REACH WILL MONITER
--- NOTE | 2020-03-06 19:45 | NUR ---
AWAKE AND ALERT. RESTING IN BED WITH RESPIRATIONS UNLABORED. CHEST AND DONOR SITE INCISIONS IN THIGHS ARE INTACT AND NO OPEN AREAS OR DRAINAGE NOTED. NO NEEDS VOICED.
[2020-03-06 19:57] VITALS: BP 114/53
--- NOTE | 2020-03-07 00:49 | NUR ---
ASSISTED TO BATHROOM AND BACK TO BED. RESTING QUEITLY WITH NO DISTRESS NOTED.
--- NOTE | 2020-03-07 05:13 | NUR ---
QUIET HOURS. NO ACUTE CHANGES IN CONDITION THIS SHIFT. RESTING IN BED WITH NO DISTRESS NOTED.
[2020-03-07 06:27] LABS: CALC OSMOLALITY 270 mosm/kg (275-300); CALCIUM 8.7 mg/dL (8.5-10.1); CARBON DIOXIDE 26.5 mmol/L (21.0-32.0); CHLORIDE - SERUM 100 mmol/L (98-107); CREATININE - SERUM 0.7 mg/dL (0.6-1.3); GLUCOSE 102 mg/dL (74-106); POTASSIUM - SERUM 4.3 mmol/L (3.5-5.1); SODIUM 135 mmol/L (136-145); UREA NITROGEN 16 mg/dL (7-18); eGFR NON AFRICAN AMERICAN 85 mL/min (90-120)
[2020-03-07 06:41] LABS: BASOPHILS 0.2 % (0-2); EOSINOPHILS 4.4 % (0-7); HEMATOCRIT 32.2 % (36.0-48.0); HEMOGLOBIN 10.6 g/dL (12-16); IMMATURE GRANULOCYTES 0.6 % (0-5); LYMPHOCYTES 29.6 % (15-50); MCH 32.7 pg (26.0-34.0); MCHC 32.9 g/dL (31.0-37.0); MCV 99.4 fL (80.0-100.0); MONOCYTES 8.3 % (2-11); NEUTROPHILS 56.9 % (40-80); PLATELET COUNT 462 10x3/uL (130-400); RBC 3.24 10x6/uL (4.00-5.40); RDW 15.6 % (11.5-14.5); WBC 5.4 10x3/uL (4.8-10.8)
--- NOTE | 2020-03-07 07:23 | NUR ---
PT RESTING IN BED WITH EYES OPEN CALL LIGHT IN REACH WILL MONITER
--- NOTE | 2020-03-07 12:38 | NUR ---
I have reviewed this patient and I concur with the Shift Assessment completed by the Licensed Practical Nurse today this shift.
--- NOTE | 2020-03-07 17:24 | NUR ---
PT RESTING IN BED WITH EYES OPEN CALL LIGHT IN REACH NO PROBLEMS WILL MONITER
[2020-03-07 19:40] VITALS: BP 107/49
--- NOTE | 2020-03-07 19:40 | NUR ---
ASSESSMENT PER FLOW SHEET, VS OBTAINED, SALINE LOCK TO LEFT WRIST INTACT WITH NO REDNESS OR EDEMA, STERNUM INC WITH DB CDI WITH NO DRAINAGE NOTED, PT REPORTS USING HEART PILLOW INST, PT REPORTS FLATUS, BM TODAY AND VOIDING WITH NO DIFFICULTY, PT INS TO USE CALL LIGHT WHEN NEEDING TO GET UP, PT VERBALIZES UNDERSTANDING, DENIES PAIN, FRESH H20 SERVED, FALL PRECAUTIONS IN PLACE
--- NOTE | 2020-03-07 21:28 | NUR ---
PT AWAKE, PT UP TO BR VIA WC WITH ASSISTANCE, VOIDED WITH NO DIFFICULTY, PT BACK TO BED, ADM 2100 MEDS PER MD ORDERS, SEE EMAR, PT DENIES FURTHER NEEDS OR PAIN
--- NOTE | 2020-03-07 22:30 | NUR ---
PT MARKETER LIGHT, PT UP TO BR VIA WC WITH ASSISTANCE, VOIDED WITH NO DIFFICULTY, PT BACK TO BED, DENIES FURTHER NEEDS, FALL PRECAUTIONS IN PLACE
--- NOTE | 2020-03-08 01:35 | NUR ---
PT PROOF MACHINE OPERATOR LIGHT, PT UP TO BR VIA WC WITH ASSISTANCE, VOIDED WITH NO DIFFICULTY, PT BACK TO BED, DENIES FURTHER NEEDS OR PAIN AT THIS TIME, FALL PRECAUTIONS IN PLACE
--- NOTE | 2020-03-08 02:42 | NUR ---
PT RESTING WITH EYES CLOSED, RESP QUIET, NO DISTRESS NOTED, LEFT UNDISTURBED AT THIS TIME, FALL PRECAUTIONS IN PLACE
--- NOTE | 2020-03-08 04:30 | NUR ---
PT RESTING WITH EYES CLOSED, RESP QUIET, NO DISTRESS NOTED, LEFT UNDISTURBED AT THIS TIME, FALL PRECAUTIONS IN PLACE
--- NOTE | 2020-03-08 04:55 | NUR ---
PT LIVESTOCK SLAUGHTERER LIGHT, PT UP TO BR VIA WC WITH ASSISTANCE, VOIDED WITH NO DIFFICULTY, CHANGED BRIEF, PT BACK TO BED, DENIES FURTHER NEEDS OR PAIN, FALL PRECAUTIONS IN PLACE
--- NOTE | 2020-03-08 05:15 | NUR ---
PT ENGINEERING TECHNOLOGIST LIGHT, PT UP TO BR VIA WC WITH ASSISTANCE, VOIDED BY SELF WITH NO DIFFICULTY, PT BACK TO BED, DENIES NEEDS OR PAIN AT THIS TIME
--- NOTE | 2020-03-08 06:23 | NUR ---
PT AWAKE, PT UP TO BR VIA WC WITH ASSISTANCE, VOIDED BY SELF WITH NO DIFFICULTY, PT BACK TO BED, ADM 0600 MED PER MD ORDERS, PT DENIES FURTHER NEEDS
--- NOTE | 2020-03-08 08:00 | NUR ---
SITTING UP IN BED EATING BREAKFAST, DENIES ANY NEEDS AT THIS TIME, C/L AND FLUIDS IN REACH.
[2020-03-08 09:41] VITALS: BP 116/54
--- NOTE | 2020-03-08 12:20 | NUR ---
SITTING UP IN BED EATING LUNCH, DENIES ANY NEEDS AT THIS TIME, C/L AND FLUIDS IN REACH.
--- NOTE | 2020-03-08 16:15 | NUR ---
SITTING UP IN BED WATCHING TV, DENIES ANY NEEDS AT THIS TIME, C/L AND FLUIDS IN REACH.
[2020-03-08 19:32] VITALS: BP 108/51
--- NOTE | 2020-03-08 19:41 | NUR ---
REPORT RECEIVED AND ROUNDING COMPLETE. PATIENT LAYING IN BED IN LOW FOWLERS RECEIVING A BREATHING TREATMENT. NO NEEDS VOICED, NO DISTRESS NOTED. CALL LIGHT WITHIN REACH AND BED IN LOWEST LOCKED POSITION. LEFT WRIST PIV SALINE LOCKED AT THIS TIME.
--- NOTE | 2020-03-09 07:44 | NUR ---
UP IN W/C WITH THERAPY EATING BREAKFAST, DENIES ANY NEEDS AT THIS TIME, C/L AND FLUIDS IN REACH.
[2020-03-09 07:54] VITALS: BP 110/51
[2020-03-09 07:59] LABS: BASOPHILS 0.5 % (0-2); EOSINOPHILS 6.2 % (0-7); HEMATOCRIT 32.8 % (36.0-48.0); HEMOGLOBIN 10.4 g/dL (12-16); IMMATURE GRANULOCYTES 0.7 % (0-5); LYMPHOCYTES 31.3 % (15-50); MCH 32.2 pg (26.0-34.0); MCHC 31.7 g/dL (31.0-37.0); MCV 101.5 fL (80.0-100.0); MONOCYTES 10.6 % (2-11); NEUTROPHILS 50.7 % (40-80); PLATELET COUNT 452 10x3/uL (130-400); RBC 3.23 10x6/uL (4.00-5.40); RDW 15.7 % (11.5-14.5); WBC 4.3 10x3/uL (4.8-10.8)
[2020-03-09 08:17] LABS: CALC OSMOLALITY 280 mosm/kg (275-300); CARBON DIOXIDE 29.6 mmol/L (21.0-32.0); CHLORIDE - SERUM 102 mmol/L (98-107); CREATININE - SERUM 0.6 mg/dL (0.6-1.3); GLUCOSE 96 mg/dL (74-106); POTASSIUM - SERUM 4.7 mmol/L (3.5-5.1); SODIUM 139 mmol/L (136-145); UREA NITROGEN 20 mg/dL (7-18); eGFR NON AFRICAN AMERICAN > 90 mL/min (90-120)
--- NOTE | 2020-03-09 10:58 | NUR ---
PATIENT IS ADMITTED TO REHAB FROM ACUTE FLOOR. HER PCP IS DR. AVELAR. HER DISCHARGE PLANS ARE FOR HER TO RETURN TO HER HOME. SHE HAS NO DME AT THIS TIME. HER FAMILY WILL TRANSPORT HER HOME. WILL CONTINUE TO FOLLOW WITH PATIENT.
--- NOTE | 2020-03-09 12:00 | NUR ---
RESTING IN BED WITH EYES CLOSED, RESP EVEN AND UNLABORED, NO S/S OF DISTRESS NOTED. C/L AND FLUIDS IN REACH.
--- NOTE | 2020-03-09 16:01 | NUR ---
RESTING IN BED WITH EYES CLOSED, RESP EVEN AND UNLABORED, NO S/S OF DISTRESS NOTED, C/L AND FLUIDS IN REACH.
[2020-03-09 19:56] VITALS: BP 113/52
--- NOTE | 2020-03-09 19:58 | NUR ---
ASSISTED TO BATHROOM AND BACK TO BED. AWAKE AND ALERT. RESPIRATIONS UNLABNORED. NO DISTRESS NOTED. CALL LIGHT IN REACH.
--- NOTE | 2020-03-10 02:02 | NUR ---
SLEEPING WITH NO DISTRESS NOTED.
--- NOTE | 2020-03-10 05:51 | NUR ---
QUIET HOURS. NO ACUTE CHANGES IN CONDITION THIS SHIFT. RESTING IN BED WITH NO DISTRESS NOTED.
--- NOTE | 2020-03-10 10:31 | NUR ---
PT RESTING IN BED WITH EYES OPEN CALL LIGHT IN REACH NO PROBLEMS WILL MONITER
[2020-03-10 14:35] VITALS: BP 134/61
--- NOTE | 2020-03-10 17:19 | NUR ---
PT RESTING IN BED WITH EYES OPEN CALL LIGHT IN REACH WILL MONITER
[2020-03-10 20:00] VITALS: BP 110/45
--- NOTE | 2020-03-11 02:07 | NUR ---
ASSISTED TO BATHROOM AND BACK TO BED. NO DISTRESS NOTED.
--- NOTE | 2020-03-11 05:00 | NUR ---
QUIET HOURS. NO ACUTE CHANGES IN CONDITION THIS SHIFT. RESTING IN BED WITH NO DISTRESS NOTED.
--- NOTE | 2020-03-11 08:00 | NUR ---
PT RESTING IN BED WITH EYES OPEN CALL LIGHT IN REACH WILL MONITER
--- NOTE | 2020-03-11 18:03 | NUR ---
PT RESTING IN BED WITH EYES OPEN CALL LIGHT IN REACH NO PROBLEMS WILL MONITER
[2020-03-11 20:00] VITALS: BP 110/56
--- NOTE | 2020-03-11 20:00 | NUR ---
AWAKE AND ALERT. RESTING IN BED WITH RESPIRATIONS UNLABORED. NO ACUTE DISTRESS NOTED. CALL LIGHT IN REACH.
--- NOTE | 2020-03-12 03:23 | NUR ---
SLEEPING WITH RESPIRATIONS UNLABORED. NO DISTRESS NOTED.
[2020-03-12 07:07] LABS: BASOPHILS 0.2 % (0-2); HEMATOCRIT 34.3 % (36.0-48.0); HEMOGLOBIN 10.8 g/dL (12-16); IMMATURE GRANULOCYTES 0.2 % (0-5); LYMPHOCYTES 34.3 % (15-50); MCH 32.3 pg (26.0-34.0); MCHC 31.5 g/dL (31.0-37.0); MCV 102.7 fL (80.0-100.0); MEAN PLATELET VOLUME 9.4 fL (7.4-10.4); MONOCYTES 10.4 % (2-11); NEUTROPHILS 48.9 % (40-80); PLATELET COUNT 389 10x3/uL (130-400); RBC 3.34 10x6/uL (4.00-5.40); RDW 15.8 % (11.5-14.5)
[2020-03-12 07:21] LABS: ANION GAP 11.3 mmol/L (8-16); CALCIUM 9.3 mg/dL (8.5-10.1); CARBON DIOXIDE 32.6 mmol/L (21.0-32.0); CREATININE - SERUM 0.8 mg/dL (0.6-1.3); POTASSIUM - SERUM 4.9 mmol/L (3.5-5.1)
--- NOTE | 2020-03-12 08:00 | NUR ---
SITTING UP IN BED EATING BREAKFAST, DENIES ANY NEEDS AT THIS TIME, C/L AND FLUIDS IN REACH.
[2020-03-12 08:37] VITALS: BP 115/60
--- NOTE | 2020-03-12 11:59 | NUR ---
RESTING IN BED WITH EYES CLOSED, NO S/S OF DISTRESS NOTED, RESP EVEN AND UNLABORED, C/L AND FLUIDS IN REACH.
--- NOTE | 2020-03-12 12:53 | NUR ---
I have reviewed this patient and I concur with the Shift Assessment completed by the Licensed Practical Nurse today this shift.
--- NOTE | 2020-03-12 16:10 | NUR ---
RESTING IN BED WITH EYES CLOSED, RESP EVEN AND UNLABORED, NO S/S OF DISTRESS NOTED, C/L AND FLUIDS IN REACH.
--- NOTE | 2020-03-12 19:07 | NUR ---
RECEIVED PT LYING IN BED EYES CLOSED RESTING. EASILY AROUSED WITH VERBAL STIMULI. NO SIGNS OF ACUTE DISTRESS NOTED. SHIFT ASSESSMENT COMPLETE. DENIES ANY NEEDS OR PAIN. CALL LIGHT WITHIN REACH. FALL PRECAUTIONS IN PLACE. CPOC
[2020-03-12 20:04] VITALS: BP 103/43
--- NOTE | 2020-03-12 23:00 | NUR ---
ASSISTED PT TO RESTROOM AND BACK TO BED WITH SBA. DENIES ANY OTHER NEEDS. C/O MILD DISCOMFORT MIDSTERNUM AT INCISION SITE. REFUSED PAIN MEDICATION. NO SIGNS OF DISTRESS NOTED. CALL LIGHT WITHIN REACH. FALL PRECAUTIONS IN PLACE. CPOC
--- NOTE | 2020-03-13 02:09 | NUR ---
PT LYING IN BED SUPINE. HOB ELEVATED. RR EVEN AND UNLABORED. CALL LIGHT WITHIN REACH. FALL PRECAUTIONS IN PLACE. CPOC
--- NOTE | 2020-03-13 05:10 | NUR ---
ASSISTED PT TO RESTROOM AND BACK TO BED WITH SBA. NO OTHER NEEDS VOICED. NO ACUTE CHANGES IN CONDITION NOTED THIS SHIFT. CALL LIGHT WITHIN REACH. FALL PRECAUTIONS IN PLACE. CPOC
[2020-03-13 08:00] VITALS: BP 113/57
--- NOTE | 2020-03-13 08:09 | NUR ---
SITTING UP IN BED EATING BREAKFAST, DENIES ANY NEEDS AT THIS TIME, C/L AND FLUIDS IN REACH.
--- NOTE | 2020-03-13 12:22 | NUR ---
SITTING UP IN BED EATING LUNCH, DENIES ANY NEEDS AT THIS TIME, C/L AND FLUIDS IN REACH.
--- NOTE | 2020-03-13 12:35 | NUR ---
NUTRITION FOLLOW UP: INTERVIEW: Met with patient this am. Patient stated that her appetite has been poor lately, but patient has been experiencing a good po intake. She denied any recent N/V/D/C and denied any chewing/swallowing issues. Patient stated her last BM was this am and was of normal consitency. DIET: Regular Diet PO INTAKE: 78% avg for last 9 meals WEIGHT: 120 lbs on 03/06 BM: Stated last BM on 03/13 SIG MEDS: Protonix, KCl, MagCl, Colace, Miralax SIG LABS: BUN-19(H), GFR-73(L) RD to continue to follow and monitor patient DHS
--- NOTE | 2020-03-13 16:00 | NUR ---
RESTING IN BED WATCHING TV, DENIES ANY NEEDS AT THIS TIME, C/L AND FLUIDS IN REACH.
[2020-03-13 19:26] VITALS: BP 119/50
--- NOTE | 2020-03-13 20:02 | NUR ---
PT UP TO TOILET, NO OTHER NEEDS NOTED, RESPIRATIONS EVEN AND UNLABORED, FALL PRECAUTIONS IN PLACE, FLUIDS/CALL LIGHT WITHIN REACH, PT BACK IN BED RESTING COMFORTABLY
[2020-03-14 07:14] LABS: BASOPHILS 0.2 % (0-2); EOSINOPHILS 5.8 % (0-7); HEMATOCRIT 32.6 % (36.0-48.0); HEMOGLOBIN 10.3 g/dL (12-16); IMMATURE GRANULOCYTES 0.2 % (0-5); LYMPHOCYTES 28.3 % (15-50); MCH 32.3 pg (26.0-34.0); MCHC 31.6 g/dL (31.0-37.0); MCV 102.2 fL (80.0-100.0); MEAN PLATELET VOLUME 9.4 fL (7.4-10.4); MONOCYTES 10.7 % (2-11); NEUTROPHILS 54.8 % (40-80); PLATELET COUNT 345 10x3/uL (130-400); RBC 3.19 10x6/uL (4.00-5.40); RDW 15.9 % (11.5-14.5); WBC 4.7 10x3/uL (4.8-10.8)
[2020-03-14 07:57] LABS: CALC OSMOLALITY 273 mosm/kg (275-300); CALCIUM 8.6 mg/dL (8.5-10.1); CARBON DIOXIDE 29.7 mmol/L (21.0-32.0); CHLORIDE - SERUM 101 mmol/L (98-107); CREATININE - SERUM 0.7 mg/dL (0.6-1.3); GLUCOSE 98 mg/dL (74-106); POTASSIUM - SERUM 4.6 mmol/L (3.5-5.1); SODIUM 136 mmol/L (136-145); UREA NITROGEN 18 mg/dL (7-18); eGFR NON AFRICAN AMERICAN 85 mL/min (90-120)
--- NOTE | 2020-03-14 08:01 | NUR ---
SITTING UP IN BED EATING BREAKFAST, DENIES ANY NEEDS AT THIS TIME, C/L AND FLUIDS IN REACH.
[2020-03-14 08:27] VITALS: BP 110/53
--- NOTE | 2020-03-14 14:08 | NUR ---
SITTING UP IN BED EATING LUNCH, DENIES ANY NEEDS AT THIS TIME, C/L AND FLUIDS IN REACH.
--- NOTE | 2020-03-14 16:04 | NUR ---
RESTING IN BED WATCHING TV, DENIES ANY NEEDS AT THIS TIME, C/L AND FLUIDS IN REACH.
[2020-03-14 19:06] VITALS: BP 117/53
--- NOTE | 2020-03-14 19:32 | NUR ---
IN BED SITTING QUIETLY, NO NEEDS NOTED, RESPIRATIONS EVEN/UNLABORED, FALL PRECAUTIONS IN PLACE, FLUIDS/CALL LIGHT WITHIN REACH
--- NOTE | 2020-03-15 00:17 | NUR ---
PT ASLEEP,AROUSES EASILY TO VOICE, RESPIRATIONS SLOW AND EASY, NO IMMEDIATE NEEDS NOTED, FALL PRECAUTIONS IN PLACE, FLUIDS/CALL LIGHT WITHIN REACH
--- NOTE | 2020-03-15 08:00 | NUR ---
PT RESTING IN BED WITH EYES OPEN CALL LIGHT IN REACH WILL MONITER
[2020-03-15 10:01] VITALS: BP 115/58
--- NOTE | 2020-03-15 15:44 | NUR ---
PT RESTING IN BED WITH EYES OPEN CALL LIGHT IN REACH WILL MONITER
--- NOTE | 2020-03-15 20:07 | NUR ---
IN BED BREATHING TREATMENT IN PROGRESS, VS TAKEN, NO IMMEDIATE NEEDS NOTED,FALL PRECAUTIONS IN PLACE, FLUIDS/CALL LIGHT WITHIN REACH
[2020-03-15 21:40] VITALS: BP 102/52
[2020-03-16 06:15] LABS: BASOPHILS 0.2 % (0-2); EOSINOPHILS 6.3 % (0-7); HEMATOCRIT 33.7 % (36.0-48.0); HEMOGLOBIN 10.8 g/dL (12-16); IMMATURE GRANULOCYTES 0.2 % (0-5); LYMPHOCYTES 29.7 % (15-50); MCH 32.7 pg (26.0-34.0); MCV 102.1 fL (80.0-100.0); MEAN PLATELET VOLUME 9.5 fL (7.4-10.4); MONOCYTES 7.6 % (2-11); PLATELET COUNT 300 10x3/uL (130-400); WBC 4.5 10x3/uL (4.8-10.8)
[2020-03-16 06:31] LABS: ANION GAP 8.6 mmol/L (8-16); CALCIUM 9.2 mg/dL (8.5-10.1); CARBON DIOXIDE 30.6 mmol/L (21.0-32.0); CREATININE - SERUM 0.8 mg/dL (0.6-1.3); POTASSIUM - SERUM 4.2 mmol/L (3.5-5.1)
--- NOTE | 2020-03-16 07:16 | NUR ---
PT RESTING IN BED WITH EYES OPEN CALL LIGHT IN REACH WILL MONITER
--- NOTE | 2020-03-16 10:09 | NUR ---
PATIENT DISCHARGING HOME TODAY WITH FAMILY. PATIENT DECLINES HOME HEALTH AT THIS TIME. NO NEW DME NEEDED AT THIS TIME. DR. AVELAR 03/23/20 @ 11:40, DR. MURRY OFFICE WILL CALL PATIENT WITH AN APPOINTMENT. INSTRUCTED PATIENT TO CALL DR. MURRY THURSDAY IF SHE HAS NOT HEARD FROM THEM. JAYY SIGNED, IMM SERVED AND EXPLAINED, ONE GIVEN TO PATIENT AND ONE FILED IN CHART. DC INSTRUCTIONS FAXED TO PCP AND REVIEWED WITH PATIENT PER PRIMARY NURSE.
[2020-03-16] MEDS ORDERED: VESICARE5 MG PO (10:52)
[2020-03-16] MEDS ORDERED: MELATONIN10 M1 PO (10:53)
[2020-03-16] MEDS ORDERED: MIRALAX17 GM PO (10:58)
[2020-03-16] MEDS ORDERED: ZOFRAN4 MG PO (10:58)
[2020-03-16] MEDS ORDERED: MAG 6464 MG PO (11:04)
[2020-03-16] MEDS ORDERED: ACETAMINOPHEN325 MG PO (11:05)
[2020-03-16] MEDS ORDERED: MUPIROCIN22 GM TOPICAL (11:06)
--- NOTE | 2020-03-16 12:00 | NUR ---
PT DISCHARGED TO HOME VIA WHEELCHAIR WITH DAUGHTER DISCHARGE SUMMARY AND MEDS REVIEWED WITH PT TOLERATED WELL
== END 2020-03-16 13:18 | disposition home or self-care (01) | DRG 91 ==
LOC: D.REHAB 15:33
PROVIDERS: ADMIT Emergency Medicine; ATTEND Emergency Medicine
DX: G72.81 Critical illness myopathy (principal); I21.4 Non-ST elevation (NSTEMI) myocardial infarction; J15.0 Pneumonia due to Klebsiella pneumoniae; N39.0 Urinary tract infection, site not specified; R07.9 Chest pain, unspecified; D64.9 Anemia, unspecified; R06.00 Dyspnea, unspecified; J32.9 Chronic sinusitis, unspecified; R53.1 Weakness; E87.6 Hypokalemia; I25.10 Atherosclerotic heart disease of native coronary artery without angina pectoris

== ENCOUNTER → 2020-04-25 11:43 | Outpatient (CLI) | payer MEDICARE, OTHER ==
[2020-03-06 13:25] VITALS: BMI 19.9
[~2020-04-25 11:43] MED LIST changes: +ACETAMINOPHEN325 MG PO; +MAG 6464 MG PO; +MELATONIN10 M1 PO; +MIRALAX17 GM PO; +MUPIROCIN22 GM TOPICAL; +VESICARE5 MG PO; +ZOFRAN4 MG PO
[2020-04-25 12:59] LABS: BASOPHILS 0.2 % (0-2); EOSINOPHILS 4.9 % (0-7); HEMATOCRIT 36.1 % (36.0-48.0); HEMOGLOBIN 11.8 g/dL (12-16); IMMATURE GRANULOCYTES 0.2 % (0-5); LYMPHOCYTES 27.5 % (15-50); MCH 33.6 pg (26.0-34.0); MCHC 32.7 g/dL (31.0-37.0); MCV 102.8 fL (80.0-100.0); MONOCYTES 7.8 % (2-11); NEUTROPHILS 59.4 % (40-80); RBC 3.51 10x6/uL (4.00-5.40); RDW 15.5 % (11.5-14.5); WBC 5.1 10x3/uL (4.8-10.8)
[2020-04-25 13:03] LABS: PLATELET COUNT 219 10x3/uL (130-400)
[2020-04-25 13:15] LABS: ANION GAP 9.7 mmol/L (8-16); CALCIUM 9.5 mg/dL (8.5-10.1); CARBON DIOXIDE 29.8 mmol/L (21.0-32.0); CREATININE - SERUM 0.8 mg/dL (0.6-1.3); POTASSIUM - SERUM 4.5 mmol/L (3.5-5.1)
== END | disposition home or self-care (01) ==
LOC: D.RAD 11:43
PROVIDERS: ATTEND Thoracic Surgery (Cardiothoracic Vascular Surgery)
DX: Z95.1 Presence of aortocoronary bypass graft (principal)